=== PATIENT | male | born 1960 | race Caucasian/White ===

== ENCOUNTER 2018-04-25 00:10 | Emergency (ER) | payer MEDICARE, MEDICAID ==
[~2018-04-25] VITALS: Ht 604 cm; Wt 81.8 kg
[~2018-04-25 00:10] MED LIST: BUPR150T27 PO; COU3T PO; OMEP40CA37 PO; PARO10TA4 PO; TAMS0.4C32 PO
[2018-04-25 01:51] LABS: ALANINE AMINOTRANSFERASE 27 U/L (12-78); ALBUMIN 4.1 G/DL (3.4-5.0); ALBUMIN/GLOBULIN RATIO 1.1 (1.1-1.5); ALKALINE PHOSPHATASE 73 IU/L (46-116); ANION GAP 15 (8-16); ASPARTATE AMINO TRANSFERASE 19 U/L (10-37); BILIRUBIN,TOTAL 0.8 MG/DL (0.1-1.0); BLOOD UREA NITROGEN 12 MG/DL (7-18); CALCIUM 8.8 MG/DL (8.5-10.1); CHLORIDE 106 MMOL/L (99-107); POTASSIUM 3.3 MMOL/L (3.5-5.1); SODIUM 142 MMOL/L (135-145); TOTAL CARBON DIOXIDE 21.1 MMOL/L (24-32); TOTAL PROTEIN 7.9 G/DL (6.4-8.2); eGFR 48 ML/MIN
[2018-04-25 01:56] LABS: BASOPHILS # (AUTO) 0.1 X10'3 (0-0.2); BASOPHILS % (AUTO) 0.7 % (0-1); EOSINOPHILS % (AUTO) 0.1 % (0-6); HEMATOCRIT 46.8 % (42.0-52.0); HEMOGLOBIN 16.1 g/dl (14.0-17.9); LYMPHOCYTES # (AUTO) 1.1 X10'3 (1.1-4.8); LYMPHOCYTES % (AUTO) 11.4 % (21-51); MEAN CORPUSCULAR HEMOGLOBIN 30.4 PG (27.0-31.0); MEAN CORPUSCULAR HGB CONC 34.4 % (33.0-36.5); MEAN CORPUSCULAR VOLUME 88.5 FL (78-98); MEAN PLATELET VOLUME 10.2 FL (7.4-10.4); MONOCYTES # (AUTO) 0.8 X10'3 (0-0.9); MONOCYTES % (AUTO) 8.7 % (2-12); NEUTROPHILS # (AUTO) 7.5 X10'3 (1.8-7.7); NEUTROPHILS % (AUTO) 79.1 % (42-75); PLATELET COUNT 208 X10'3 (140-440); RED BLOOD COUNT 5.29 X10'6 (4.70-6.10); RED CELL DISTRIBUTION WIDTH 14.5 % (11.5-14.5); WHITE BLOOD COUNT 9.5 X10'3 (4.5-11.0)
[2018-04-25 02:00] LABS: ETHANOL < 0.010 GM/DL (0.0-0.010)
[2018-04-25 02:07] LABS: ACETAMINOPHEN < 2.0 UG/ML (10-30)
[2018-04-25 02:09] LABS: GLUCOSE 144 MG/DL (70-104)
[2018-04-25 02:46] LABS: URINE AMPHETAMINE SCREEN NEGATIVE (Neg); URINE BARBITUATE SCREEN NEGATIVE (Neg); URINE BENZODIAZEPINES SCREEN NEGATIVE (Neg); URINE CANNABINOID SCREEN NEGATIVE (Neg); URINE COCAINE SCREEN NEGATIVE (Neg); URINE METHADONE SCREEN NEGATIVE (Neg); URINE OPIATE SCREEN NEGATIVE (Neg); URINE PHENCYCLIDINE SCREEN NEGATIVE (Neg)
[2018-04-25] MEDS ORDERED: ziprasidone IM 20mg inj **IM only IM PRN (03:20)
[2018-04-25] MEDS: OLANZapine 2.5MG tablet PO SCH ×2 (07:20→19:58)
[2018-04-25 20:46] VITALS: BP 115/86
== END 2018-04-25 20:00 | disposition home or self-care (01) ==
LOC: ER 00:10
DX: F23 Brief psychotic disorder (principal); Z98.890 Other specified postprocedural states; Z88.8 Allergy status to other drugs, medicaments and biological substances; Z79.01 Long term (current) use of anticoagulants; Z79.899 Other long term (current) drug therapy
CPT/HCPCS: 36415; 70450; 80053; 80305; 80320; 80329; 84443; 85025; 96372; 99285; J3486

== ENCOUNTER 2018-06-14 10:37 | Emergency (ER) | payer MEDICARE, MEDICAID ==
[~2018-06-14] VITALS: Ht 180.3 cm; Wt 77.5 kg
[2018-06-14 12:02] LABS: BASOPHILS # (AUTO) 0.1 X10'3 (0-0.2); BASOPHILS % (AUTO) 0.8 % (0-1); EOSINOPHILS # (AUTO) 0.2 X10'3 (0-0.9); EOSINOPHILS % (AUTO) 2.1 % (0-6); HEMATOCRIT 45.5 % (42.0-52.0); HEMOGLOBIN 15.8 g/dl (14.0-17.9); LYMPHOCYTES # (AUTO) 1.1 X10'3 (1.1-4.8); LYMPHOCYTES % (AUTO) 10.8 % (21-51); MEAN CORPUSCULAR HEMOGLOBIN 30.8 PG (27.0-31.0); MEAN CORPUSCULAR HGB CONC 34.6 % (33.0-36.5); MEAN CORPUSCULAR VOLUME 89.1 FL (78-98); MEAN PLATELET VOLUME 8.9 FL (7.4-10.4); MONOCYTES # (AUTO) 0.6 X10'3 (0-0.9); MONOCYTES % (AUTO) 5.7 % (2-12); NEUTROPHILS # (AUTO) 7.9 X10'3 (1.8-7.7); NEUTROPHILS % (AUTO) 80.6 % (42-75); PLATELET COUNT 273 X10'3 (140-440); RED BLOOD COUNT 5.11 X10'6 (4.70-6.10); RED CELL DISTRIBUTION WIDTH 13.9 % (11.5-14.5); WHITE BLOOD COUNT 9.8 X10'3 (4.5-11.0)
[2018-06-14 12:17] LABS: ALANINE AMINOTRANSFERASE 40 U/L (12-78); ALBUMIN 4.1 G/DL (3.4-5.0); ALBUMIN/GLOBULIN RATIO 1.2 (1.1-1.5); ALKALINE PHOSPHATASE 70 IU/L (46-116); ANION GAP 11 (8-16); ASPARTATE AMINO TRANSFERASE 26 U/L (10-37); BILIRUBIN,TOTAL 1.2 MG/DL (0.1-1.0); BLOOD UREA NITROGEN 14 MG/DL (7-18); BUN/CREATININE RATIO 11.5 (5.4-32.0); CALCIUM 8.8 MG/DL (8.5-10.1); CHLORIDE 104 MMOL/L (99-107); CREATININE 1.22 MG/DL (0.60-1.10); GLUCOSE 123 MG/DL (70-104); POTASSIUM 3.2 MMOL/L (3.5-5.1); SODIUM 140 MMOL/L (135-145); TOTAL CARBON DIOXIDE 25.1 MMOL/L (24-32); TOTAL PROTEIN 7.5 G/DL (6.4-8.2); eGFR 61 ML/MIN
[2018-06-14 12:26] LABS: ETHANOL < 0.010 GM/DL (0.0-0.010)
[2018-06-14 12:47] LABS: CLARITY,URINE SLIGHTLY CLOUDY (Clear); COLOR,URINE YELLOW (Yellow); GLUCOSE, URINE NEGATIVE (Neg); KETONES,URINE 15 mg/dl (Neg); LEUKOCYTE ESTERASE ,URINE NEGATIVE (Neg); NITRITES, URINE NEGATIVE (Neg); OCCULT BLOOD,URINE NEGATIVE (Neg); PROTEIN,URINE TRACE mg/dl (Neg); UROBILINOGEN,URINE 0.2 E.U/dL (0.2-1.0)
[2018-06-14 12:48] LABS: UA COLLECTION TYPE URINAL
[2018-06-14 12:51] LABS: RBC,URINE NONE SEEN /HPF (0-2); WBC,URINE 0-4 /HPF (0-4)
[2018-06-14 12:52] LABS: AMORPHOUS URATES 2+; BACTERIA,URINE NONE SEEN /HPF (Neg); MUCUS STRANDS MANY /LPF (Neg); SQUAMOUS EPITHELIAL CELL,UR FEW /LPF (FEW)
[2018-06-14 12:53] LABS: URINE AMPHETAMINE SCREEN NEGATIVE (Neg); URINE BARBITUATE SCREEN NEGATIVE (Neg); URINE BENZODIAZEPINES SCREEN NEGATIVE (Neg); URINE CANNABINOID SCREEN NEGATIVE (Neg); URINE COCAINE SCREEN NEGATIVE (Neg); URINE METHADONE SCREEN NEGATIVE (Neg); URINE OPIATE SCREEN NEGATIVE (Neg); URINE PHENCYCLIDINE SCREEN NEGATIVE (Neg)
[2018-06-14 16:00] VITALS: BP 125/75
[2018-06-14] MEDS ORDERED: BREXPIPRAZOLE PO SCH (20:00)
[2018-06-14] MEDS ORDERED: potassium Cl 20 mEq SR tablet PO STA (20:48)
[2018-06-14] MEDS ORDERED: magnesium oxide 400mg tablet PO ONE (20:50)
[2018-06-14] MEDS ORDERED: PARoxetine 10mg tablet PO ONE (21:17)
[2018-06-14] MEDS ORDERED: cyclobenzaprine 10mg tablet PO PRN (21:20)
[2018-06-14] MEDS ORDERED: buproprion 150mg XL (24-hour) tablet PO ONE (21:20)
[2018-06-14 21:52] LABS: INR 2.2 INR; PARTIAL THROMBOPLASTIN TIME 33 SECONDS (22-32); PROTHROMBIN TIME 21.9 SECONDS (9.0-12.0)
[2018-06-14 21:58] LABS: ALANINE AMINOTRANSFERASE 30 U/L (12-78); ALBUMIN 3.7 G/DL (3.4-5.0); ALBUMIN/GLOBULIN RATIO 1.2 (1.1-1.5); ALKALINE PHOSPHATASE 64 IU/L (46-116); ANION GAP 9 (8-16); ASPARTATE AMINO TRANSFERASE 24 U/L (10-37); BILIRUBIN,TOTAL 0.9 MG/DL (0.1-1.0); BLOOD UREA NITROGEN 15 MG/DL (7-18); BUN/CREATININE RATIO 14.2 (5.4-32.0); CHLORIDE 103 MMOL/L (99-107); CREATININE 1.06 MG/DL (0.60-1.10); GLUCOSE 106 MG/DL (70-104); POTASSIUM 3.1 MMOL/L (3.5-5.1); SODIUM 140 MMOL/L (135-145); TOTAL CARBON DIOXIDE 28.3 MMOL/L (24-32); TOTAL PROTEIN 6.9 G/DL (6.4-8.2); eGFR 72 ML/MIN
[2018-06-14] MEDS ORDERED: buPROPion 75mg tablet PO ONE (22:00)
[2018-06-14] MEDS ORDERED: warfarin 3mg tablet PO ONE (22:35)
[2018-06-14] MEDS ORDERED: OLAN10TA3 PO ×2 (23:25)
[2018-06-15] MEDS ORDERED: pantoprazole 40mg Tablet.DR PO SCH (07:30)
[2018-06-15] MEDS ORDERED: buPROPion 75mg tablet PO SCH (08:00)
[2018-06-15] MEDS ORDERED: buproprion 150mg XL (24-hour) tablet PO SCH (08:00)
[2018-06-15] MEDS ORDERED: PARoxetine 10mg tablet PO SCH (08:00)
[2018-06-15] MEDS ORDERED: potassium Cl 40MEQ/NS 500ml 500 ML IV PRN ×2 (16:50)
[2018-06-15] MEDS ORDERED: magnesium 4gm in 100ml NS 100 ML IV PRN (16:50)
[2018-06-15] MEDS ORDERED: magnesium Cl slow-release 64mg tablet PO PRN (16:50)
[2018-06-15] MEDS ORDERED: potassium Cl 20 mEq SR tablet PO PRN ×2 (16:50)
[2018-06-15] MEDS ORDERED: warfarin 3mg tablet PO SCH (21:00)
[2018-06-15] MEDS ORDERED: tamsulosin 0.4mg capsule PO SCH (21:00)
[2018-06-15] MEDS ORDERED: warfarin 5mg tablet PO ONE (21:00)
[2018-06-15] MEDS ORDERED: warfarin 1mg tablet PO SCH (21:00)
== END 2018-06-14 22:30 ==
LOC: ER 10:38
DX: F32.9 Major depressive disorder, single episode, unspecified (principal); G89.29 Other chronic pain; M54.9 Dorsalgia, unspecified; Z86.73 Personal history of transient ischemic attack (TIA), and cerebral infarction without residual deficits; Z88.6 Allergy status to analgesic agent; Z88.8 Allergy status to other drugs, medicaments and biological substances
CPT/HCPCS: 36415; 80053; 80305; 80320; 81001; 84443; 85025; 85610; 85730; 99285

== ENCOUNTER 2018-06-14 22:00 | Inpatient (IN) | payer MEDICARE, MEDICAID ==
[~2018-06-14] VITALS: Ht 176.5 cm; Wt 77.0 kg
[2018-06-14] MEDS ORDERED: OLAN10TA3 PO ×2 (23:25)
[2018-06-14 23:30] VITALS: BP 121/85
[2018-06-15] MEDS ORDERED: magnesium hydroxide 30ml (MOM) UD suspension PO PRN
[2018-06-15] MEDS ORDERED: mag hydrox/Alum hydrox/simeth 30ml oral suspension PO PRN
[2018-06-15] MEDS ORDERED: olanzapine 10mg tablet PO ONE (04:50)
[2018-06-15] MEDS ORDERED: olanzapine 10mg tablet PO PRN (06:10)
[2018-06-15] MEDS: pantoprazole 40mg Tablet.DR PO SCH (07:34)
[2018-06-15 08:00] VITALS: BP 110/78
[2018-06-15] MEDS ORDERED: PARoxetine 10mg tablet PO SCH ×2 (08:00)
[2018-06-15] MEDS ORDERED: buproprion 150mg XL (24-hour) tablet PO SCH (08:00)
[2018-06-15] MEDS ORDERED: tamsulosin 0.4mg capsule PO SCH (08:00)
[2018-06-15] MEDS ORDERED: buPROPion 75mg tablet PO SCH (08:00)
[2018-06-15 08:23] LABS: CHOL/HDL RATIO 3.8 (0.00-4.99); CHOLESTEROL 180 MG/DL (0-200); HDL CHOLESTEROL 48 MG/DL (35-60); LDL CHOLESTEROL 114 MG/DL (50-100); TRIGLYCERIDES 112 MG/DL (20-135)
[2018-06-15 08:30] LABS: HEMOGLOBIN A1C 5.4 % (4.5-6.2)
[2018-06-15 12:44] LABS: INR 1.6 INR; PROTHROMBIN TIME 16.6 SECONDS (9.0-12.0)
[2018-06-15] MEDS ORDERED: magnesium Cl slow-release 64mg tablet PO PRN (17:10)
[2018-06-15] MEDS ORDERED: potassium Cl 20 mEq SR tablet PO PRN (17:10)
[2018-06-15] MEDS ORDERED: potassium Cl 40MEQ/NS 500ml 500 ML IV PRN ×2 (17:10)
[2018-06-15] MEDS ORDERED: magnesium 4gm in 100ml NS 100 ML IV PRN (17:10)
[2018-06-15] MEDS: lurasidone 20mg tablet PO SCH (18:48)
[2018-06-15 19:37] VITALS: BP 100/63
[2018-06-15] MEDS ORDERED: warfarin 2.5mg tablet PO SCH (21:00)
[2018-06-15] MEDS ORDERED: warfarin 3mg tablet PO ONE (21:00)
[2018-06-15] MEDS ORDERED: olanzapine 10mg tablet PO SCH (21:00)
[2018-06-15] MEDS: tamsulosin 0.4mg capsule PO SCH (21:12)
[2018-06-15] MEDS: enoxaparin 50mg/0.5ml (from 3ml vial) syringe SUBCUT SCH (21:12)
[2018-06-16 07:14] LABS: INR 1.3 INR; PROTHROMBIN TIME 13.8 SECONDS (9.0-12.0)
[2018-06-16 07:19] LABS: MAGNESIUM 1.7 MG/DL (1.5-2.4); POTASSIUM 3.2 MMOL/L (3.5-5.1)
[2018-06-16 07:49] VITALS: BP 108/69
[2018-06-16] MEDS: pantoprazole 40mg Tablet.DR PO SCH (08:01)
[2018-06-16] MEDS: enoxaparin 50mg/0.5ml (from 3ml vial) syringe SUBCUT SCH ×2 (09:01→20:13)
[2018-06-16] MEDS: olanzapine 10mg tablet PO PRN (17:02)
[2018-06-16] MEDS: lurasidone 20mg tablet PO SCH (17:32)
[2018-06-16 20:00] VITALS: BP 108/85
[2018-06-16] MEDS: traZODone 50mg tablet PO PRN (20:15)
[2018-06-16] MEDS: tamsulosin 0.4mg capsule PO SCH (20:16)
[2018-06-16] MEDS: potassium Cl 20 mEq SR tablet PO PRN (20:25)
[2018-06-16] MEDS ORDERED: warfarin 5mg tablet PO ONE (21:00)
[2018-06-17] MEDS: potassium Cl 20 mEq SR tablet PO PRN (02:16)
[2018-06-17 07:01] LABS: MAGNESIUM 1.9 MG/DL (1.5-2.4)
[2018-06-17 07:04] LABS: INR 1.5 INR; PROTHROMBIN TIME 15.5 SECONDS (9.0-12.0)
[2018-06-17] MEDS: pantoprazole 40mg Tablet.DR PO SCH (08:11)
[2018-06-17] MEDS: enoxaparin 50mg/0.5ml (from 3ml vial) syringe SUBCUT SCH (08:13)
[2018-06-17 08:15] VITALS: BP 108/78
[2018-06-17] MEDS: olanzapine 10mg tablet PO PRN (14:58)
[2018-06-17] MEDS ORDERED: lurasidone 20mg tablet PO SCH (18:00)
[2018-06-17] MEDS ORDERED: lurasidone 60mg tablet PO SCH ×2 (18:00)
[2018-06-17 20:01] VITALS: BP 108/74
[2018-06-17] MEDS: tamsulosin 0.4mg capsule PO SCH (20:25)
[2018-06-17] MEDS: traZODone 50mg tablet PO PRN (20:26)
[2018-06-17] MEDS: enoxaparin 80mg/0.8ml syringe SUBCUT SCH (20:27)
[2018-06-17] MEDS ORDERED: warfarin 5mg tablet PO ONE (21:00)
[2018-06-18 08:00] VITALS: BP 109/69
[2018-06-18] MEDS: pantoprazole 40mg Tablet.DR PO SCH (08:15)
[2018-06-18 08:27] LABS: POTASSIUM 4.1 MMOL/L (3.5-5.1)
[2018-06-18] MEDS: enoxaparin 80mg/0.8ml syringe SUBCUT SCH ×2 (08:48→21:15)
[2018-06-18 10:09] LABS: INR 1.7 INR; PROTHROMBIN TIME 16.8 SECONDS (9.0-12.0)
[2018-06-18] MEDS: acetaminophen 325mg tablet PO PRN (15:35)
[2018-06-18] MEDS: olanzapine 10mg tablet PO PRN (15:36)
[2018-06-18] MEDS: lurasidone 60mg tablet PO SCH (17:51)
[2018-06-18 19:50] VITALS: BP 132/89
[2018-06-18] MEDS ORDERED: warfarin 3mg tablet PO ONE (21:00)
[2018-06-18] MEDS: tamsulosin 0.4mg capsule PO SCH (21:14)
[2018-06-18] MEDS: zolpidem 5mg tablet PO SCH (21:14)
[2018-06-19] MEDS: pantoprazole 40mg Tablet.DR PO SCH (07:26)
[2018-06-19] MEDS: enoxaparin 80mg/0.8ml syringe SUBCUT SCH ×2 (07:27→20:17)
[2018-06-19 08:00] VITALS: BP 110/68
[2018-06-19 08:09] LABS: POTASSIUM 4.4 MMOL/L (3.5-5.1)
[2018-06-19 08:10] LABS: INR 1.7 INR; PROTHROMBIN TIME 17.3 SECONDS (9.0-12.0)
[2018-06-19] MEDS: olanzapine 10mg tablet PO PRN (11:55)
[2018-06-19] MEDS: acetaminophen 325mg tablet PO PRN ×2 (12:03→20:33)
[2018-06-19] MEDS: lurasidone 60mg tablet PO SCH (17:46)
[2018-06-19 20:00] VITALS: BP 125/75
[2018-06-19] MEDS: zolpidem 5mg tablet PO SCH (20:17)
[2018-06-19] MEDS: tamsulosin 0.4mg capsule PO SCH (20:18)
[2018-06-19] MEDS ORDERED: warfarin 7.5mg tablet PO ONE (21:00)
[2018-06-20 07:39] VITALS: BP 99/72
[2018-06-20] MEDS: pantoprazole 40mg Tablet.DR PO SCH (08:17)
[2018-06-20 09:04] LABS: INR 1.9 INR; PROTHROMBIN TIME 19.5 SECONDS (9.0-12.0)
[2018-06-20] MEDS: enoxaparin 80mg/0.8ml syringe SUBCUT SCH ×2 (09:06→20:51)
[2018-06-20] MEDS: olanzapine 10mg tablet PO PRN (09:59)
[2018-06-20] MEDS: lurasidone 60mg tablet PO SCH (17:48)
[2018-06-20] MEDS: acetaminophen 325mg tablet PO PRN (17:49)
[2018-06-20 19:46] VITALS: BP 113/85
[2018-06-20] MEDS: tamsulosin 0.4mg capsule PO SCH (20:50)
[2018-06-20] MEDS: zolpidem 5mg tablet PO SCH (20:50)
[2018-06-20] MEDS ORDERED: warfarin 7.5mg tablet PO ONE (21:00)
[2018-06-21 06:33] LABS: INR 2.2 INR; PROTHROMBIN TIME 22.4 SECONDS (9.0-12.0)
[2018-06-21] MEDS: enoxaparin 80mg/0.8ml syringe SUBCUT SCH (07:45)
[2018-06-21] MEDS: pantoprazole 40mg Tablet.DR PO SCH (07:45)
[2018-06-21 08:00] VITALS: BP 107/71
[2018-06-21] MEDS ORDERED: tuberculin, purif. prot. deriv. 5 units/0.1ml ID ONE (08:30)
[2018-06-21] MEDS: acetaminophen 325mg tablet PO PRN ×2 (11:18→21:02)
[2018-06-21] MEDS: HYDROcodone/acetaminophen 5mg/325mg tablet PO PRN ×2 (13:45→17:38)
[2018-06-21] MEDS: olanzapine 10mg tablet PO PRN ×2 (15:08→21:00)
[2018-06-21] MEDS: lurasidone 60mg tablet PO SCH (17:38)
[2018-06-21 19:38] VITALS: BP 124/83
[2018-06-21] MEDS: zolpidem 5mg tablet PO SCH (20:59)
[2018-06-21] MEDS: tamsulosin 0.4mg capsule PO SCH (20:59)
[2018-06-21] MEDS ORDERED: warfarin 3mg tablet PO ONE (21:00)
[2018-06-22] MEDS: HYDROcodone/acetaminophen 5mg/325mg tablet PO PRN ×2 (02:25→07:35)
[2018-06-22 07:28] LABS: INR 2.5 INR; PROTHROMBIN TIME 24.8 SECONDS (9.0-12.0)
[2018-06-22] MEDS: pantoprazole 40mg Tablet.DR PO SCH (07:35)
[2018-06-22 08:00] VITALS: BP 119/89
[2018-06-22] MEDS ORDERED: LORazepam 1 MG tablet PO ONE (12:00)
[2018-06-22] MEDS: HYDROcodone/acetaminophen 10/325mg tab PO PRN ×2 (12:28→21:19)
[2018-06-22 16:15] VITALS: BP 107/71
[2018-06-22] MEDS: lurasidone 60mg tablet PO SCH (17:05)
[2018-06-22 19:14] LABS: BASOPHILS # (AUTO) 0.1 X10'3 (0-0.2); BASOPHILS % (AUTO) 0.6 % (0-1); EOSINOPHILS # (AUTO) 0.3 X10'3 (0-0.9); EOSINOPHILS % (AUTO) 2.6 % (0-6); HEMATOCRIT 38.9 % (42.0-52.0); HEMOGLOBIN 13.3 g/dl (14.0-17.9); LYMPHOCYTES # (AUTO) 1.3 X10'3 (1.1-4.8); MEAN CORPUSCULAR HEMOGLOBIN 30.7 PG (27.0-31.0); MEAN CORPUSCULAR HGB CONC 34.1 % (33.0-36.5); MEAN CORPUSCULAR VOLUME 90.1 FL (78-98); MEAN PLATELET VOLUME 10.6 FL (7.4-10.4); MONOCYTES % (AUTO) 10.5 % (2-12); NEUTROPHILS # (AUTO) 7.2 X10'3 (1.8-7.7); NEUTROPHILS % (AUTO) 73.3 % (42-75); RED BLOOD COUNT 4.31 X10'6 (4.70-6.10); WHITE BLOOD COUNT 9.8 X10'3 (4.5-11.0)
[2018-06-22 19:52] LABS: PLATELET COUNT 252 X10'3 (140-440)
[2018-06-22 20:00] VITALS: BP 122/76
[2018-06-22] MEDS ORDERED: warfarin 3mg tablet PO ONE (21:00)
[2018-06-22] MEDS: clindamycin 150mg capsule PO SCH (21:18)
[2018-06-22] MEDS: tamsulosin 0.4mg capsule PO SCH (21:19)
[2018-06-22] MEDS: levoFLOXACIN 500mg tablet PO SCH (21:19)
[2018-06-22] MEDS: olanzapine 10mg tablet PO PRN (21:19)
[2018-06-22] MEDS: zolpidem 5mg tablet PO SCH (21:20)
[2018-06-23] MEDS: clindamycin 150mg capsule PO SCH ×5 (02:00→21:30)
[2018-06-23 07:31] LABS: INR 2.6 INR; PROTHROMBIN TIME 25.7 SECONDS (9.0-12.0)
[2018-06-23 08:19] VITALS: BP 104/68
[2018-06-23] MEDS: pantoprazole 40mg Tablet.DR PO SCH (08:28)
[2018-06-23] MEDS: lurasidone 20mg tablet PO SCH (08:29)
[2018-06-23] MEDS: levoFLOXACIN 500mg tablet PO SCH (08:29)
[2018-06-23] MEDS: HYDROcodone/acetaminophen 10/325mg tab PO PRN ×3 (12:38→22:16)
[2018-06-23] MEDS: lurasidone 60mg tablet PO SCH (17:46)
[2018-06-23 19:32] VITALS: BP 110/70
[2018-06-23] MEDS ORDERED: warfarin 3mg tablet PO ONE (21:00)
[2018-06-23] MEDS: zolpidem 5mg tablet PO SCH (21:30)
[2018-06-23] MEDS: lactobacillus rhamnosus 10,000 MMU CELLS/CAPSULE PO SCH (21:30)
[2018-06-23] MEDS: tamsulosin 0.4mg capsule PO SCH (21:32)
[2018-06-23] MEDS: olanzapine 10mg tablet PO PRN (21:34)
[2018-06-24 07:07] LABS: INR 2.6 INR; PROTHROMBIN TIME 25.7 SECONDS (9.0-12.0)
[2018-06-24] MEDS: lactobacillus rhamnosus 10,000 MMU CELLS/CAPSULE PO SCH ×2 (07:47→21:20)
[2018-06-24] MEDS: lurasidone 20mg tablet PO SCH (07:47)
[2018-06-24] MEDS: clindamycin 150mg capsule PO SCH ×4 (07:48→21:20)
[2018-06-24] MEDS: levoFLOXACIN 500mg tablet PO SCH (07:48)
[2018-06-24] MEDS: pantoprazole 40mg Tablet.DR PO SCH (07:48)
[2018-06-24 08:44] VITALS: BP 106/79
[2018-06-24] MEDS: lurasidone 60mg tablet PO SCH (17:39)
[2018-06-24] MEDS: HYDROcodone/acetaminophen 5mg/325mg tablet PO PRN (17:42)
[2018-06-24 19:16] VITALS: BP 113/71
[2018-06-24] MEDS: olanzapine 10mg tablet PO PRN (19:44)
[2018-06-24] MEDS: HYDROcodone/acetaminophen 10/325mg tab PO PRN ×2 (19:45→23:46)
[2018-06-24 20:18] LABS: BASOPHILS % (AUTO) 0.1 % (0-1); EOSINOPHILS # (AUTO) 0.2 X10'3 (0-0.9); HEMATOCRIT 28.8 % (42.0-52.0); HEMOGLOBIN 9.9 g/dl (14.0-17.9); LYMPHOCYTES # (AUTO) 0.7 X10'3 (1.1-4.8); LYMPHOCYTES % (AUTO) 7.2 % (21-51); MEAN CORPUSCULAR HEMOGLOBIN 30.8 PG (27.0-31.0); MEAN CORPUSCULAR HGB CONC 34.5 % (33.0-36.5); MEAN CORPUSCULAR VOLUME 89.1 FL (78-98); MEAN PLATELET VOLUME 9.9 FL (7.4-10.4); MONOCYTES % (AUTO) 10.6 % (2-12); NEUTROPHILS # (AUTO) 7.7 X10'3 (1.8-7.7); NEUTROPHILS % (AUTO) 80.1 % (42-75); PLATELET COUNT 177 X10'3 (140-440); RED BLOOD COUNT 3.23 X10'6 (4.70-6.10); RED CELL DISTRIBUTION WIDTH 13.8 % (11.5-14.5); WHITE BLOOD COUNT 9.6 X10'3 (4.5-11.0)
[2018-06-24 20:30] VITALS: BP 100/60
[2018-06-24 20:35] LABS: ALANINE AMINOTRANSFERASE 49 U/L (12-78); ALBUMIN 2.9 G/DL (3.4-5.0); ALBUMIN/GLOBULIN RATIO 0.9 (1.1-1.5); ALKALINE PHOSPHATASE 65 IU/L (46-116); ANION GAP 9 (8-16); ASPARTATE AMINO TRANSFERASE 27 U/L (10-37); BILIRUBIN,TOTAL 0.5 MG/DL (0.1-1.0); BLOOD UREA NITROGEN 19 MG/DL (7-18); BUN/CREATININE RATIO 14.5 (5.4-32.0); CALCIUM 8.2 MG/DL (8.5-10.1); CHLORIDE 101 MMOL/L (99-107); CREATININE 1.31 MG/DL (0.60-1.10); GLUCOSE 135 MG/DL (70-104); POTASSIUM 3.9 MMOL/L (3.5-5.1); SODIUM 136 MMOL/L (135-145); TOTAL CARBON DIOXIDE 25.9 MMOL/L (24-32); TOTAL PROTEIN 6.2 G/DL (6.4-8.2); eGFR 56 ML/MIN
[2018-06-24] MEDS ORDERED: warfarin 3mg tablet PO ONE (21:00)
[2018-06-24] MEDS: zolpidem 5mg tablet PO SCH (21:20)
[2018-06-24] MEDS: tamsulosin 0.4mg capsule PO SCH (21:20)
[2018-06-24 21:22] LABS: CLARITY,URINE CLEAR (Clear); COLOR,URINE YELLOW (Yellow); GLUCOSE, URINE NEGATIVE (Neg); KETONES,URINE NEGATIVE (Neg); LEUKOCYTE ESTERASE ,URINE NEGATIVE (Neg); NITRITES, URINE NEGATIVE (Neg); OCCULT BLOOD,URINE NEGATIVE (Neg); PH,URINE 5.5 (4.8-8.0); PROTEIN,URINE NEGATIVE (Neg); UROBILINOGEN,URINE 0.2 E.U/dL (0.2-1.0)
[2018-06-24 21:23] LABS: UA COLLECTION TYPE NON-SPECIFIED
[2018-06-25] MEDS: HYDROcodone/acetaminophen 10/325mg tab PO PRN ×3 (03:46→19:37)
[2018-06-25 07:01] LABS: BASOPHILS # (AUTO) 0.1 X10'3 (0-0.2); BASOPHILS % (AUTO) 0.6 % (0-1); EOSINOPHILS # (AUTO) 0.3 X10'3 (0-0.9); EOSINOPHILS % (AUTO) 4.1 % (0-6); HEMOGLOBIN 9.8 g/dl (14.0-17.9); LYMPHOCYTES % (AUTO) 12.3 % (21-51); MEAN CORPUSCULAR HEMOGLOBIN 31.3 PG (27.0-31.0); MEAN CORPUSCULAR HGB CONC 34.9 % (33.0-36.5); MEAN CORPUSCULAR VOLUME 89.7 FL (78-98); MEAN PLATELET VOLUME 9.2 FL (7.4-10.4); MONOCYTES % (AUTO) 11.3 % (2-12); NEUTROPHILS % (AUTO) 71.7 % (42-75); PLATELET COUNT 168 X10'3 (140-440); RED BLOOD COUNT 3.12 X10'6 (4.70-6.10); RED CELL DISTRIBUTION WIDTH 12.9 % (11.5-14.5); WHITE BLOOD COUNT 8.4 X10'3 (4.5-11.0)
[2018-06-25 08:00] VITALS: BP 117/57
[2018-06-25] MEDS: clindamycin 150mg capsule PO SCH ×4 (08:22→20:16)
[2018-06-25] MEDS: lurasidone 20mg tablet PO SCH (08:22)
[2018-06-25] MEDS: lactobacillus rhamnosus 10,000 MMU CELLS/CAPSULE PO SCH ×2 (08:22→20:16)
[2018-06-25] MEDS: pantoprazole 40mg Tablet.DR PO SCH (08:22)
[2018-06-25] MEDS: levoFLOXACIN 500mg tablet PO SCH (08:22)
[2018-06-25 08:30] LABS: INR 2.7 INR; PROTHROMBIN TIME 27.2 SECONDS (9.0-12.0)
[2018-06-25] MEDS: lurasidone 60mg tablet PO SCH (17:33)
[2018-06-25 19:00] VITALS: BP 138/75
[2018-06-25] MEDS: olanzapine 10mg tablet PO PRN (19:35)
[2018-06-25] MEDS: zolpidem 5mg tablet PO SCH (20:16)
[2018-06-25] MEDS: tamsulosin 0.4mg capsule PO SCH (20:18)
[2018-06-25] MEDS ORDERED: warfarin 3mg tablet PO ONE (21:00)
[2018-06-26] MEDS: acetaminophen 325mg tablet PO PRN (02:06)
[2018-06-26 06:43] LABS: BASOPHILS % (AUTO) 0.7 % (0-1); EOSINOPHILS # (AUTO) 0.5 X10'3 (0-0.9); EOSINOPHILS % (AUTO) 7.6 % (0-6); HEMATOCRIT 25.6 % (42.0-52.0); LYMPHOCYTES # (AUTO) 0.7 X10'3 (1.1-4.8); LYMPHOCYTES % (AUTO) 11.2 % (21-51); MEAN CORPUSCULAR HEMOGLOBIN 31.1 PG (27.0-31.0); MEAN CORPUSCULAR HGB CONC 35.3 % (33.0-36.5); MEAN CORPUSCULAR VOLUME 88.3 FL (78-98); MEAN PLATELET VOLUME 9.3 FL (7.4-10.4); MONOCYTES # (AUTO) 0.7 X10'3 (0-0.9); NEUTROPHILS # (AUTO) 4.5 X10'3 (1.8-7.7); NEUTROPHILS % (AUTO) 69.5 % (42-75); PLATELET COUNT 184 X10'3 (140-440); WHITE BLOOD COUNT 6.5 X10'3 (4.5-11.0)
[2018-06-26 07:02] LABS: INR 3.8 INR; PROTHROMBIN TIME 37.6 SECONDS (9.0-12.0)
[2018-06-26 08:00] VITALS: BP 105/64
[2018-06-26] MEDS: lactobacillus rhamnosus 10,000 MMU CELLS/CAPSULE PO SCH (08:15)
[2018-06-26] MEDS: pantoprazole 40mg Tablet.DR PO SCH (08:15)
[2018-06-26] MEDS: clindamycin 150mg capsule PO SCH (08:15)
[2018-06-26] MEDS: levoFLOXACIN 500mg tablet PO SCH (08:15)
[2018-06-26] MEDS: lurasidone 20mg tablet PO SCH (08:15)
[2018-06-26] MEDS ORDERED: phytonadione 10 MG/1 ML amp PO ONE (10:10)
[2018-06-26 17:56] LABS: INR 1.9 INR; PROTHROMBIN TIME 19.5 SECONDS (9.0-12.0)
[2018-06-26] MEDS ORDERED: LACTC PO (19:57)
[2018-06-26] MEDS ORDERED: HYDR-569 PO (19:57)
[2018-06-26] MEDS ORDERED: ZOLP5TAB8 PO (19:57)
[2018-06-26] MEDS ORDERED: MAGN400O6 PO (19:57)
[2018-06-26] MEDS ORDERED: LURA120T PO (19:57)
[2018-06-26] MEDS ORDERED: PANT-47 PO (19:57)
[2018-06-26] MEDS ORDERED: OLAN10TA3 PO (19:57)
[2018-06-26] MEDS ORDERED: WARF6TAB PO (19:57)
[2018-06-26] MEDS ORDERED: CLIN300C3 PO (19:57)
[2018-06-26] MEDS ORDERED: HYDR-565 PO (19:57)
[2018-06-26] MEDS ORDERED: FLO0.4C PO (19:57)
[2018-06-26] MEDS ORDERED: ACET-2119 PO (19:57)
[2018-06-26] MEDS ORDERED: LEVO500T2 PO (19:57)
[2018-06-26] MEDS ORDERED: LURA40TA3 PO (19:57)
[2018-06-26] MEDS ORDERED: MAG355OR18 PO (19:57)
[2018-06-26] MEDS ORDERED: ACET-2144 PO (19:57)
== END 2018-06-26 17:15 | disposition short-term general hospital (02) | DRG 885 ==
LOC: ADULT MH 22:00
PROVIDERS: ADMIT Psychiatry & Neurology Psychiatry; ATTEND Psychiatry & Neurology Psychiatry
DX: F29 Unspecified psychosis not due to a substance or known physiological condition (principal); I69.354 Hemiplegia and hemiparesis following cerebral infarction affecting left non-dominant side; R45.851 Suicidal ideations; D62 Acute posthemorrhagic anemia; L03.116 Cellulitis of left lower limb; F20.9 Schizophrenia, unspecified; M66.0 Rupture of popliteal cyst; E87.6 Hypokalemia; F32.9 Major depressive disorder, single episode, unspecified; F41.9 Anxiety disorder, unspecified; G47.00 Insomnia, unspecified; Z60.2 Problems related to living alone; G89.29 Other chronic pain; M54.9 Dorsalgia, unspecified; M21.339 Wrist drop, unspecified wrist; Z79.01 Long term (current) use of anticoagulants; Z91.14 Patient's other noncompliance with medication regimen; Z95.2 Presence of prosthetic heart valve; Z79.899 Other long term (current) drug therapy; Z88.6 Allergy status to analgesic agent; Z91.048 Other nonmedicinal substance allergy status; Z91.19 Patient's noncompliance with other medical treatment and regimen
CPT/HCPCS: 36415; 80053; 80061; 81003; 83036; 83605; 83735; 84132; 85025; 85610; 87040; 87070; 93971; 97116; 97161; 99285; J1650; J3430; J3490

== ENCOUNTER 2018-06-26 15:20 | Inpatient (IN) | payer MEDICARE, MEDICAID ==
[~2018-06-26] VITALS: Ht 180.3 cm; Wt 81.8 kg
[~2018-06-26 15:20] MED LIST changes: +OLAN10TA3 PO
[2018-06-26 18:00] VITALS: BP 112/63
[2018-06-26] MEDS ORDERED: ACET-2119 PO (19:57)
[2018-06-26] MEDS ORDERED: WARF6TAB PO (19:57)
[2018-06-26] MEDS ORDERED: OLAN10TA3 PO (19:57)
[2018-06-26] MEDS ORDERED: MAGN400O6 PO (19:57)
[2018-06-26] MEDS ORDERED: LACTC PO (19:57)
[2018-06-26] MEDS ORDERED: FLO0.4C PO (19:57)
[2018-06-26] MEDS ORDERED: LEVO500T2 PO (19:57)
[2018-06-26] MEDS ORDERED: CLIN300C3 PO (19:57)
[2018-06-26] MEDS ORDERED: ACET-2144 PO (19:57)
[2018-06-26] MEDS ORDERED: LURA40TA3 PO (19:57)
[2018-06-26] MEDS ORDERED: HYDR-565 PO (19:57)
[2018-06-26] MEDS ORDERED: PANT-47 PO (19:57)
[2018-06-26] MEDS ORDERED: HYDR-569 PO (19:57)
[2018-06-26] MEDS ORDERED: ZOLP5TAB8 PO (19:57)
[2018-06-26] MEDS ORDERED: LURA120T PO (19:57)
[2018-06-26] MEDS ORDERED: MAG355OR18 PO (19:57)
[2018-06-26] MEDS ORDERED: temazepam 15mg capsule PO PRN (21:00)
[2018-06-26] MEDS ORDERED: HYDROmorphone inj. 0.5 MG/0.5 ML DISP.SYRIN IV PRN ×2 (22:00)
[2018-06-26] MEDS ORDERED: morphine 2 MG/ML inj. syringe IV PRN ×2 (22:00)
[2018-06-26] MEDS ORDERED: diphenhydrAMINE 25mg capsule PO PRN (22:00)
[2018-06-26] MEDS ORDERED: bisacodyl 10mg suppository rectal RC PRN (22:00)
[2018-06-26] MEDS ORDERED: olanzapine 10mg tablet PO PRN (22:00)
[2018-06-26] MEDS ORDERED: mag hydrox/Alum hydrox/simeth 30ml oral suspension PO PRN (22:00)
[2018-06-26] MEDS ORDERED: diphenhydrAMINE 50 mg/ml inj IV PRN (22:00)
[2018-06-26] MEDS ORDERED: magnesium hydroxide 30ml (MOM) UD suspension PO PRN (22:00)
[2018-06-26] MEDS ORDERED: metoclopramide 5 mg/ml inj IV PRN (22:00)
[2018-06-26] MEDS ORDERED: acetaminophen 650mg rectal suppository RC PRN (22:00)
[2018-06-26] MEDS ORDERED: ondansetron/PF 4mg/2ml inj IV PRN (22:00)
[2018-06-26] MEDS: normal saline 1000ml 1,000 ML IV SCH (22:31)
[2018-06-26] MEDS: acetaminophen 325mg tablet PO PRN (22:41)
[2018-06-26 22:46] LABS: CREATINE KINASE 114 U/L (39-308); LIPASE 117 U/L (73-393); MAGNESIUM 2.1 MG/DL (1.5-2.4); PHOSPHORUS 2.4 MG/DL (2.3-4.5)
[2018-06-27] VITALS: BP 108/55
[2018-06-27 07:08] LABS: BASOPHILS % (AUTO) 0.6 % (0-1); EOSINOPHILS # (AUTO) 0.5 X10'3 (0-0.9); EOSINOPHILS % (AUTO) 8.3 % (0-6); HEMATOCRIT 24.9 % (42.0-52.0); HEMOGLOBIN 8.7 g/dl (14.0-17.9); LYMPHOCYTES # (AUTO) 0.6 X10'3 (1.1-4.8); LYMPHOCYTES % (AUTO) 10.4 % (21-51); MEAN CORPUSCULAR HEMOGLOBIN 30.8 PG (27.0-31.0); MEAN CORPUSCULAR HGB CONC 35.1 % (33.0-36.5); MEAN CORPUSCULAR VOLUME 87.8 FL (78-98); MEAN PLATELET VOLUME 9.5 FL (7.4-10.4); MONOCYTES # (AUTO) 0.5 X10'3 (0-0.9); MONOCYTES % (AUTO) 8.5 % (2-12); NEUTROPHILS # (AUTO) 4.5 X10'3 (1.8-7.7); NEUTROPHILS % (AUTO) 72.2 % (42-75); PLATELET COUNT 210 X10'3 (140-440); RED BLOOD COUNT 2.84 X10'6 (4.70-6.10); RED CELL DISTRIBUTION WIDTH 13.9 % (11.5-14.5); WHITE BLOOD COUNT 6.2 X10'3 (4.5-11.0)
[2018-06-27 07:26] LABS: ALANINE AMINOTRANSFERASE 30 U/L (12-78); ALBUMIN 2.7 G/DL (3.4-5.0); ALBUMIN/GLOBULIN RATIO 0.8 (1.1-1.5); ALKALINE PHOSPHATASE 59 IU/L (46-116); ANION GAP 8 (8-16); ASPARTATE AMINO TRANSFERASE 18 U/L (10-37); BILIRUBIN,TOTAL 1.1 MG/DL (0.1-1.0); BLOOD UREA NITROGEN 13 MG/DL (7-18); CALCIUM 8.4 MG/DL (8.5-10.1); CHLORIDE 105 MMOL/L (99-107); CREATININE 1.18 MG/DL (0.60-1.10); GLUCOSE 103 MG/DL (70-104); POTASSIUM 3.5 MMOL/L (3.5-5.1); SODIUM 140 MMOL/L (135-145); TOTAL CARBON DIOXIDE 27.3 MMOL/L (24-32); TOTAL PROTEIN 6.1 G/DL (6.4-8.2); eGFR 63 ML/MIN
[2018-06-27] MEDS: PARoxetine 10mg tablet PO SCH (07:29)
[2018-06-27] MEDS: docusate sod 100mg capsule PO SCH ×2 (07:29→22:09)
[2018-06-27] MEDS: tamsulosin 0.4mg capsule PO SCH (07:29)
[2018-06-27] MEDS: pantoprazole 40mg Tablet.DR PO SCH (07:29)
[2018-06-27 07:30] VITALS: BP 131/78
[2018-06-27] MEDS: acetaminophen 325mg tablet PO PRN (07:30)
[2018-06-27] MEDS: ferrous sulfate 325mg tablet PO SCH ×3 (07:34→17:16)
[2018-06-27 07:44] LABS: INR 1.1 INR; PARTIAL THROMBOPLASTIN TIME 33 SECONDS (22-32); PROTHROMBIN TIME 11.6 SECONDS (9.0-12.0)
[2018-06-27] MEDS ORDERED: buproprion 150mg XL (24-hour) tablet PO SCH (08:00)
[2018-06-27] MEDS ORDERED: tamsulosin 0.4mg capsule PO SCH (08:00)
[2018-06-27] MEDS: enoxaparin 80mg/0.8ml syringe SUBCUT SCH ×3 (08:00→22:09)
[2018-06-27 11:40] VITALS: BP 104/53
[2018-06-27] MEDS: HYDROcodone/acetaminophen 10/325mg tab PO PRN (11:57)
[2018-06-27] MEDS: lurasidone 20mg tablet PO SCH (12:31)
[2018-06-27] MEDS: buPROPion 75mg tablet PO SCH ×2 (12:31→22:08)
[2018-06-27 18:00] VITALS: BP 112/73
[2018-06-27] MEDS ORDERED: lurasidone 20mg tablet PO SCH (18:00)
[2018-06-27] MEDS ORDERED: warfarin 7.5mg tablet PO ONE (21:00)
[2018-06-27] MEDS: olanzapine 10mg tablet PO SCH (22:08)
[2018-06-27] MEDS: zolpidem 5mg tablet PO SCH (22:08)
[2018-06-27 23:00] VITALS: BP 116/64
[2018-06-27 23:30] VITALS: BP 109/72
[2018-06-28] MEDS: HYDROcodone/acetaminophen 10/325mg tab PO PRN ×3 (01:19→20:08)
[2018-06-28 05:29] LABS: INR 1.1 INR; PARTIAL THROMBOPLASTIN TIME 39 SECONDS (22-32); PROTHROMBIN TIME 11.2 SECONDS (9.0-12.0)
[2018-06-28 05:38] LABS: BASOPHILS % (AUTO) 0.3 % (0-1); EOSINOPHILS # (AUTO) 0.3 X10'3 (0-0.9); EOSINOPHILS % (AUTO) 3.4 % (0-6); HEMATOCRIT 24.1 % (42.0-52.0); HEMOGLOBIN 8.3 g/dl (14.0-17.9); LYMPHOCYTES # (AUTO) 0.7 X10'3 (1.1-4.8); LYMPHOCYTES % (AUTO) 8.5 % (21-51); MEAN CORPUSCULAR HEMOGLOBIN 30.5 PG (27.0-31.0); MEAN CORPUSCULAR HGB CONC 34.5 % (33.0-36.5); MEAN CORPUSCULAR VOLUME 88.6 FL (78-98); MEAN PLATELET VOLUME 9.3 FL (7.4-10.4); MONOCYTES # (AUTO) 0.7 X10'3 (0-0.9); MONOCYTES % (AUTO) 8.2 % (2-12); NEUTROPHILS # (AUTO) 6.4 X10'3 (1.8-7.7); NEUTROPHILS % (AUTO) 79.6 % (42-75); PLATELET COUNT 224 X10'3 (140-440); RED BLOOD COUNT 2.73 X10'6 (4.70-6.10); RED CELL DISTRIBUTION WIDTH 13.8 % (11.5-14.5); WHITE BLOOD COUNT 8.1 X10'3 (4.5-11.0)
[2018-06-28 05:53] LABS: ALANINE AMINOTRANSFERASE 27 U/L (12-78); ALBUMIN 2.4 G/DL (3.4-5.0); ALBUMIN/GLOBULIN RATIO 0.7 (1.1-1.5); ALKALINE PHOSPHATASE 54 IU/L (46-116); ANION GAP 9 (8-16); ASPARTATE AMINO TRANSFERASE 18 U/L (10-37); BLOOD UREA NITROGEN 15 MG/DL (7-18); BUN/CREATININE RATIO 13.2 (5.4-32.0); CHLORIDE 104 MMOL/L (99-107); CREATININE 1.14 MG/DL (0.60-1.10); GLUCOSE 121 MG/DL (70-104); POTASSIUM 3.4 MMOL/L (3.5-5.1); SODIUM 139 MMOL/L (135-145); TOTAL CARBON DIOXIDE 26.3 MMOL/L (24-32); TOTAL PROTEIN 5.7 G/DL (6.4-8.2); eGFR 66 ML/MIN
[2018-06-28 07:00] VITALS: BP 105/65
[2018-06-28] MEDS: enoxaparin 80mg/0.8ml syringe SUBCUT SCH ×2 (08:51→20:10)
[2018-06-28] MEDS: docusate sod 100mg capsule PO SCH ×2 (08:51→20:09)
[2018-06-28] MEDS: tamsulosin 0.4mg capsule PO SCH (08:52)
[2018-06-28] MEDS: HYDROcodone/acetaminophen 5mg/325mg tablet PO PRN (08:52)
[2018-06-28] MEDS: PARoxetine 10mg tablet PO SCH (08:52)
[2018-06-28] MEDS: lurasidone 20mg tablet PO SCH (08:52)
[2018-06-28] MEDS: ferrous sulfate 325mg tablet PO SCH ×3 (08:52→17:46)
[2018-06-28] MEDS: buPROPion 75mg tablet PO SCH ×2 (08:52→20:09)
[2018-06-28] MEDS: pantoprazole 40mg Tablet.DR PO SCH (08:54)
[2018-06-28 11:00] VITALS: BP 104/68
[2018-06-28] MEDS ORDERED: magnesium 1gm/100ml D5W IVPB 100 ML IV PRN (11:30)
[2018-06-28] MEDS ORDERED: potassium Cl 20 mEq SR tablet PO PRN (11:30)
[2018-06-28] MEDS ORDERED: potassium Cl 40MEQ/NS 500ml 500 ML IV PRN ×2 (11:30)
[2018-06-28] MEDS ORDERED: magnesium Cl slow-release 64mg tablet PO PRN (11:30)
[2018-06-28] MEDS ORDERED: magnesium 4gm in 100ml NS 100 ML IV PRN (11:30)
[2018-06-28] MEDS: vancomycin inj 1,250 MG in normal saline 250ml IV soln 250 ML IV SCH (13:31)
[2018-06-28] MEDS: potassium Cl 20 mEq SR tablet PO PRN ×3 (13:39→21:36)
[2018-06-28 13:48] LABS: % IRON SATURATION 8 % (11-46); FERRITIN 364 NG/ML (26-388); IRON 16 UG/DL (53-167); TOTAL IRON BINDING CAPACITY 196 UG/DL (259-388)
[2018-06-28] MEDS: normal saline 1000ml 1,000 ML IV SCH ×2 (14:23→20:09)
[2018-06-28] MEDS: piperacillin/tazo 3.375gm/50ml 50 ML IV SCH ×2 (15:01→20:09)
[2018-06-28] MEDS ORDERED: gadopentetate dimeglumine 7.5 MMOL/15 ML syringe ONE (17:06)
[2018-06-28] MEDS: lurasidone 60mg tablet PO SCH (17:51)
[2018-06-28 20:00] VITALS: BP 112/66
[2018-06-28] MEDS ORDERED: warfarin 3mg tablet PO ONE (21:00)
[2018-06-28] MEDS: zolpidem 5mg tablet PO SCH (21:36)
[2018-06-28] MEDS: olanzapine 10mg tablet PO SCH (21:36)
[2018-06-29] MEDS: vancomycin inj 1,250 MG in normal saline 250ml IV soln 250 ML IV SCH ×2 (01:04→13:00)
[2018-06-29] MEDS: piperacillin/tazo 3.375gm/50ml 50 ML IV SCH ×4 (03:12→20:47)
[2018-06-29] MEDS: HYDROcodone/acetaminophen 10/325mg tab PO PRN (03:44)
[2018-06-29 05:36] LABS: BASOPHILS % (AUTO) 0.2 % (0-1); EOSINOPHILS # (AUTO) 0.6 X10'3 (0-0.9); EOSINOPHILS % (AUTO) 7.8 % (0-6); HEMATOCRIT 22.7 % (42.0-52.0); HEMOGLOBIN 8.1 g/dl (14.0-17.9); LYMPHOCYTES # (AUTO) 0.6 X10'3 (1.1-4.8); LYMPHOCYTES % (AUTO) 7.7 % (21-51); MEAN CORPUSCULAR HEMOGLOBIN 31.3 PG (27.0-31.0); MEAN CORPUSCULAR HGB CONC 35.5 % (33.0-36.5); MEAN CORPUSCULAR VOLUME 88.3 FL (78-98); MEAN PLATELET VOLUME 8.4 FL (7.4-10.4); MONOCYTES # (AUTO) 0.5 X10'3 (0-0.9); MONOCYTES % (AUTO) 7.3 % (2-12); NEUTROPHILS # (AUTO) 5.6 X10'3 (1.8-7.7); PLATELET COUNT 237 X10'3 (140-440); RED BLOOD COUNT 2.57 X10'6 (4.70-6.10); RED CELL DISTRIBUTION WIDTH 13.8 % (11.5-14.5); WHITE BLOOD COUNT 7.3 X10'3 (4.5-11.0)
[2018-06-29 05:51] LABS: INR 1.1 INR; PARTIAL THROMBOPLASTIN TIME 38 SECONDS (22-32); PROTHROMBIN TIME 11.7 SECONDS (9.0-12.0)
[2018-06-29 05:59] LABS: ALANINE AMINOTRANSFERASE 24 U/L (12-78); ALBUMIN 2.2 G/DL (3.4-5.0); ALBUMIN/GLOBULIN RATIO 0.7 (1.1-1.5); ALKALINE PHOSPHATASE 53 IU/L (46-116); ANION GAP 9 (8-16); ASPARTATE AMINO TRANSFERASE 15 U/L (10-37); BILIRUBIN,TOTAL 1.1 MG/DL (0.1-1.0); BLOOD UREA NITROGEN 12 MG/DL (7-18); CALCIUM 7.7 MG/DL (8.5-10.1); CHLORIDE 108 MMOL/L (99-107); CREATININE 1.09 MG/DL (0.60-1.10); GLUCOSE 106 MG/DL (70-104); MAGNESIUM 1.8 MG/DL (1.5-2.4); POTASSIUM 3.8 MMOL/L (3.5-5.1); SODIUM 141 MMOL/L (135-145); TOTAL CARBON DIOXIDE 24.1 MMOL/L (24-32); TOTAL PROTEIN 5.4 G/DL (6.4-8.2); eGFR 69 ML/MIN
[2018-06-29 07:00] VITALS: BP 108/69
[2018-06-29] MEDS: PARoxetine 10mg tablet PO SCH (08:26)
[2018-06-29] MEDS: buPROPion 75mg tablet PO SCH ×2 (08:26→20:46)
[2018-06-29] MEDS: normal saline 1000ml 1,000 ML IV SCH (08:26)
[2018-06-29] MEDS: docusate sod 100mg capsule PO SCH ×2 (08:26→20:46)
[2018-06-29] MEDS: ferrous sulfate 325mg tablet PO SCH ×3 (08:26→18:58)
[2018-06-29] MEDS: pantoprazole 40mg Tablet.DR PO SCH (08:26)
[2018-06-29] MEDS: tamsulosin 0.4mg capsule PO SCH (08:26)
[2018-06-29] MEDS: enoxaparin 80mg/0.8ml syringe SUBCUT SCH ×2 (08:28→20:46)
[2018-06-29] MEDS: lurasidone 20mg tablet PO SCH (09:37)
[2018-06-29 12:00] VITALS: BP 108/68
[2018-06-29 12:38] LABS: OCCULT BLOOD STOOL NEGATIVE (Neg)
[2018-06-29] MEDS: acetaminophen 325mg tablet PO PRN (15:07)
[2018-06-29] MEDS: lurasidone 60mg tablet PO SCH (18:59)
[2018-06-29 20:00] VITALS: BP 123/60
[2018-06-29] MEDS: lactobacillus rhamnosus 10,000 MMU CELLS/CAPSULE PO SCH (20:45)
[2018-06-29] MEDS ORDERED: warfarin 5mg tablet PO ONE (21:00)
[2018-06-29] MEDS: olanzapine 10mg tablet PO SCH (21:02)
[2018-06-29] MEDS: zolpidem 5mg tablet PO SCH (21:04)
[2018-06-30] VITALS: BP 104/65
[2018-06-30] MEDS: normal saline 1000ml 1,000 ML IV SCH ×3 (00:30→16:37)
[2018-06-30] MEDS ORDERED: VANCOMYCIN LEVEL IV ONE (00:30)
[2018-06-30] MEDS: vancomycin inj 1,250 MG in normal saline 250ml IV soln 250 ML IV SCH (01:21)
[2018-06-30] MEDS: piperacillin/tazo 3.375gm/50ml 50 ML IV SCH ×4 (02:19→22:33)
[2018-06-30 07:00] VITALS: BP 112/68
[2018-06-30 07:20] LABS: BASOPHILS % (AUTO) 0.5 % (0-1); EOSINOPHILS # (AUTO) 0.5 X10'3 (0-0.9); EOSINOPHILS % (AUTO) 7.5 % (0-6); HEMATOCRIT 23.7 % (42.0-52.0); HEMOGLOBIN 8.1 g/dl (14.0-17.9); LYMPHOCYTES # (AUTO) 0.8 X10'3 (1.1-4.8); LYMPHOCYTES % (AUTO) 12.1 % (21-51); MEAN CORPUSCULAR HEMOGLOBIN 30.3 PG (27.0-31.0); MEAN CORPUSCULAR HGB CONC 34.2 % (33.0-36.5); MEAN CORPUSCULAR VOLUME 88.6 FL (78-98); MEAN PLATELET VOLUME 8.4 FL (7.4-10.4); MONOCYTES # (AUTO) 0.5 X10'3 (0-0.9); NEUTROPHILS % (AUTO) 72.9 % (42-75); PLATELET COUNT 262 X10'3 (140-440); RED BLOOD COUNT 2.68 X10'6 (4.70-6.10); RED CELL DISTRIBUTION WIDTH 14.4 % (11.5-14.5); WHITE BLOOD COUNT 6.8 X10'3 (4.5-11.0)
[2018-06-30 07:29] LABS: INR 1.5 INR; PROTHROMBIN TIME 15.1 SECONDS (9.0-12.0)
[2018-06-30 07:40] LABS: ALANINE AMINOTRANSFERASE 24 U/L (12-78); ALBUMIN 2.2 G/DL (3.4-5.0); ALBUMIN/GLOBULIN RATIO 0.6 (1.1-1.5); ALKALINE PHOSPHATASE 49 IU/L (46-116); ANION GAP 8 (8-16); ASPARTATE AMINO TRANSFERASE 18 U/L (10-37); BILIRUBIN,TOTAL 0.8 MG/DL (0.1-1.0); BLOOD UREA NITROGEN 10 MG/DL (7-18); BUN/CREATININE RATIO 9.1 (5.4-32.0); CALCIUM 7.8 MG/DL (8.5-10.1); CHLORIDE 109 MMOL/L (99-107); GLUCOSE 106 MG/DL (70-104); MAGNESIUM 1.9 MG/DL (1.5-2.4); POTASSIUM 3.5 MMOL/L (3.5-5.1); SODIUM 142 MMOL/L (135-145); TOTAL PROTEIN 5.6 G/DL (6.4-8.2); eGFR 69 ML/MIN
[2018-06-30] MEDS: buPROPion 75mg tablet PO SCH ×2 (09:20→22:40)
[2018-06-30] MEDS: lactobacillus rhamnosus 10,000 MMU CELLS/CAPSULE PO SCH ×2 (09:20→22:42)
[2018-06-30] MEDS: pantoprazole 40mg Tablet.DR PO SCH (09:20)
[2018-06-30] MEDS: ferrous sulfate 325mg tablet PO SCH ×3 (09:20→17:44)
[2018-06-30] MEDS: docusate sod 100mg capsule PO SCH ×2 (09:21→20:00)
[2018-06-30] MEDS: PARoxetine 10mg tablet PO SCH (09:21)
[2018-06-30] MEDS: tamsulosin 0.4mg capsule PO SCH (09:22)
[2018-06-30] MEDS: lurasidone 20mg tablet PO SCH ×2 (09:22→17:44)
[2018-06-30] MEDS: enoxaparin 80mg/0.8ml syringe SUBCUT SCH ×2 (09:24→22:38)
[2018-06-30 17:02] VITALS: BP 107/65
[2018-06-30] MEDS: lurasidone 60mg tablet PO SCH (17:55)
[2018-06-30 20:00] VITALS: BP 117/65
[2018-06-30] MEDS ORDERED: acetaminophen 325mg tablet PO ONE (20:25)
[2018-06-30] MEDS ORDERED: warfarin 3mg tablet PO ONE (21:00)
[2018-06-30] MEDS: zolpidem 5mg tablet PO SCH (22:39)
[2018-06-30] MEDS: olanzapine 10mg tablet PO SCH (22:40)
[2018-07-01] VITALS: BP 95/56
[2018-07-01] MEDS: piperacillin/tazo 3.375gm/50ml 50 ML IV SCH ×4 (03:43→20:28)
[2018-07-01] MEDS: normal saline 1000ml 1,000 ML IV SCH ×2 (05:57→09:01)
[2018-07-01 06:08] LABS: BASOPHILS % (AUTO) 0.7 % (0-1); EOSINOPHILS # (AUTO) 0.7 X10'3 (0-0.9); EOSINOPHILS % (AUTO) 11.2 % (0-6); HEMATOCRIT 25.2 % (42.0-52.0); HEMOGLOBIN 8.6 g/dl (14.0-17.9); LYMPHOCYTES # (AUTO) 0.7 X10'3 (1.1-4.8); LYMPHOCYTES % (AUTO) 11.3 % (21-51); MEAN CORPUSCULAR HEMOGLOBIN 30.1 PG (27.0-31.0); MEAN CORPUSCULAR VOLUME 88.5 FL (78-98); MEAN PLATELET VOLUME 8.6 FL (7.4-10.4); MONOCYTES # (AUTO) 0.5 X10'3 (0-0.9); MONOCYTES % (AUTO) 8.1 % (2-12); NEUTROPHILS # (AUTO) 4.3 X10'3 (1.8-7.7); NEUTROPHILS % (AUTO) 68.7 % (42-75); PLATELET COUNT 279 X10'3 (140-440); RED BLOOD COUNT 2.85 X10'6 (4.70-6.10); RED CELL DISTRIBUTION WIDTH 14.2 % (11.5-14.5); WHITE BLOOD COUNT 6.3 X10'3 (4.5-11.0)
[2018-07-01 06:11] LABS: INR 1.5 INR; PROTHROMBIN TIME 15.3 SECONDS (9.0-12.0)
[2018-07-01 06:28] LABS: ALANINE AMINOTRANSFERASE 31 U/L (12-78); ALBUMIN 2.4 G/DL (3.4-5.0); ALBUMIN/GLOBULIN RATIO 0.7 (1.1-1.5); ALKALINE PHOSPHATASE 55 IU/L (46-116); ANION GAP 8 (8-16); ASPARTATE AMINO TRANSFERASE 21 U/L (10-37); BILIRUBIN,TOTAL 1.1 MG/DL (0.1-1.0); BLOOD UREA NITROGEN 9 MG/DL (7-18); BUN/CREATININE RATIO 8.1 (5.4-32.0); CHLORIDE 110 MMOL/L (99-107); CREATININE 1.11 MG/DL (0.60-1.10); GLUCOSE 94 MG/DL (70-104); MAGNESIUM 1.8 MG/DL (1.5-2.4); POTASSIUM 3.1 MMOL/L (3.5-5.1); SODIUM 144 MMOL/L (135-145); TOTAL CARBON DIOXIDE 25.9 MMOL/L (24-32); eGFR 68 ML/MIN
[2018-07-01 07:23] VITALS: BP 112/63
[2018-07-01] MEDS: docusate sod 100mg capsule PO SCH ×2 (08:00→20:00)
[2018-07-01] MEDS: tamsulosin 0.4mg capsule PO SCH (08:54)
[2018-07-01] MEDS: pantoprazole 40mg Tablet.DR PO SCH (08:54)
[2018-07-01] MEDS: lactobacillus rhamnosus 10,000 MMU CELLS/CAPSULE PO SCH ×2 (08:54→20:28)
[2018-07-01] MEDS: PARoxetine 10mg tablet PO SCH (08:55)
[2018-07-01] MEDS: ferrous sulfate 325mg tablet PO SCH ×3 (08:55→17:11)
[2018-07-01] MEDS: buPROPion 75mg tablet PO SCH ×2 (08:55→20:28)
[2018-07-01] MEDS: enoxaparin 80mg/0.8ml syringe SUBCUT SCH ×2 (08:58→20:36)
[2018-07-01] MEDS: potassium Cl 20 mEq SR tablet PO PRN ×3 (10:16→20:37)
[2018-07-01 11:09] VITALS: BP 107/66
[2018-07-01] MEDS ORDERED: iohexol 300mg/ml 100ml inj. ONE (11:39)
[2018-07-01] MEDS ORDERED: potassium Cl 20 mEq SR tablet PO PRN (15:50)
[2018-07-01] MEDS ORDERED: magnesium 1gm/100ml D5W IVPB 100 ML IV PRN (15:50)
[2018-07-01] MEDS ORDERED: magnesium 4gm in 100ml NS 100 ML IV PRN (15:50)
[2018-07-01] MEDS ORDERED: potassium Cl 40MEQ/NS 500ml 500 ML IV PRN ×2 (15:50)
[2018-07-01] MEDS ORDERED: magnesium Cl slow-release 64mg tablet PO PRN (15:50)
[2018-07-01] MEDS ORDERED: lurasidone 20mg tablet PO ONE ×2 (17:20→17:35)
[2018-07-01] MEDS: lurasidone 60mg tablet PO SCH (17:26)
[2018-07-01 19:00] VITALS: BP 99/66
[2018-07-01] MEDS: HYDROcodone/acetaminophen 5mg/325mg tablet PO PRN (19:25)
[2018-07-01] MEDS: olanzapine 10mg tablet PO SCH (21:36)
[2018-07-01] MEDS: zolpidem 5mg tablet PO SCH (22:53)
[2018-07-02] VITALS (17 sets, daily range): BP systolic 104–140; BP diastolic 65–92
[2018-07-02] MEDS ORDERED: normal saline 1000ml 1,000 ML IV ONE (00:20)
[2018-07-02] MEDS ORDERED: VANCOMYCIN LEVEL IV ONE (00:30)
[2018-07-02 01:19] LABS: MAGNESIUM 1.7 MG/DL (1.5-2.4); POTASSIUM 3.5 MMOL/L (3.5-5.1)
[2018-07-02] MEDS: normal saline 1000ml 1,000 ML IV SCH ×4 (01:35→21:21)
[2018-07-02] MEDS: piperacillin/tazo 3.375gm/50ml 50 ML IV SCH ×4 (03:35→21:09)
[2018-07-02 06:51] LABS: INR 1.4 INR; PROTHROMBIN TIME 14.7 SECONDS (9.0-12.0)
[2018-07-02] MEDS: docusate sod 100mg capsule PO SCH ×2 (08:00→21:02)
[2018-07-02] MEDS: enoxaparin 80mg/0.8ml syringe SUBCUT SCH ×2 (08:00→21:07)
[2018-07-02] MEDS: pantoprazole 40mg Tablet.DR PO SCH (09:01)
[2018-07-02] MEDS: PARoxetine 10mg tablet PO SCH (09:02)
[2018-07-02] MEDS: lactobacillus rhamnosus 10,000 MMU CELLS/CAPSULE PO SCH ×2 (09:02→21:02)
[2018-07-02] MEDS: tamsulosin 0.4mg capsule PO SCH (09:02)
[2018-07-02] MEDS: lurasidone 20mg tablet PO SCH (09:02)
[2018-07-02] MEDS: buPROPion 75mg tablet PO SCH ×2 (09:03→21:15)
[2018-07-02] MEDS: ferrous sulfate 325mg tablet PO SCH ×3 (09:03→20:58)
[2018-07-02] MEDS: HYDROcodone/acetaminophen 5mg/325mg tablet PO PRN (09:04)
[2018-07-02 15:40] LABS: BASOPHILS % (AUTO) 0.3 % (0-1); EOSINOPHILS # (AUTO) 0.4 X10'3 (0-0.9); EOSINOPHILS % (AUTO) 6.8 % (0-6); HEMATOCRIT 24.8 % (42.0-52.0); HEMOGLOBIN 8.4 g/dl (14.0-17.9); LYMPHOCYTES # (AUTO) 0.6 X10'3 (1.1-4.8); LYMPHOCYTES % (AUTO) 8.9 % (21-51); MEAN CORPUSCULAR HEMOGLOBIN 29.8 PG (27.0-31.0); MEAN CORPUSCULAR HGB CONC 33.8 % (33.0-36.5); MEAN CORPUSCULAR VOLUME 88.1 FL (78-98); MEAN PLATELET VOLUME 8.6 FL (7.4-10.4); MONOCYTES # (AUTO) 0.4 X10'3 (0-0.9); MONOCYTES % (AUTO) 5.6 % (2-12); NEUTROPHILS % (AUTO) 78.4 % (42-75); PLATELET COUNT 312 X10'3 (140-440); RED BLOOD COUNT 2.82 X10'6 (4.70-6.10); RED CELL DISTRIBUTION WIDTH 14.7 % (11.5-14.5); WHITE BLOOD COUNT 6.4 X10'3 (4.5-11.0)
[2018-07-02 15:51] LABS: PARTIAL THROMBOPLASTIN TIME 32 SECONDS (22-32)
[2018-07-02 15:55] LABS: ALANINE AMINOTRANSFERASE 25 U/L (12-78); ALBUMIN 2.4 G/DL (3.4-5.0); ALBUMIN/GLOBULIN RATIO 0.7 (1.1-1.5); ALKALINE PHOSPHATASE 57 IU/L (46-116); ANION GAP 9 (8-16); ASPARTATE AMINO TRANSFERASE 24 U/L (10-37); BLOOD UREA NITROGEN 8 MG/DL (7-18); BUN/CREATININE RATIO 7.6 (5.4-32.0); CALCIUM 7.9 MG/DL (8.5-10.1); CHLORIDE 109 MMOL/L (99-107); CREATININE 1.05 MG/DL (0.60-1.10); GLUCOSE 98 MG/DL (70-104); POTASSIUM 3.5 MMOL/L (3.5-5.1); SODIUM 142 MMOL/L (135-145); eGFR 73 ML/MIN
[2018-07-02] MEDS ORDERED: bacitracin 15gm ointment TP ONE (16:41)
[2018-07-02] MEDS ORDERED: sevoflurane 250ml liquid IH ONE (18:03)
[2018-07-02] MEDS ORDERED: fentaNYL/PF 50MCG/1 ML 2ML syringe ONE ×2 (18:08→18:36)
[2018-07-02] MEDS ORDERED: midazolam 2 mg/2 ml injection ONE (18:09)
[2018-07-02] MEDS ORDERED: propofol inj 20 ML IV ONE (18:36)
[2018-07-02] MEDS: zolpidem 5mg tablet PO SCH (21:00)
[2018-07-02] MEDS: HYDROcodone/acetaminophen 10/325mg tab PO PRN (21:07)
[2018-07-02] MEDS: lurasidone 60mg tablet PO SCH (21:15)
[2018-07-02] MEDS: olanzapine 10mg tablet PO SCH (23:03)
[2018-07-03] VITALS: BP 126/76
[2018-07-03 00:15] VITALS: BP 98/65
[2018-07-03] MEDS: HYDROcodone/acetaminophen 5mg/325mg tablet PO PRN (01:22)
[2018-07-03 04:30] VITALS: BP 105/68
[2018-07-03] MEDS: piperacillin/tazo 3.375gm/50ml 50 ML IV SCH ×4 (04:41→20:28)
[2018-07-03 07:09] LABS: INR 1.4 INR
[2018-07-03] MEDS: enoxaparin 80mg/0.8ml syringe SUBCUT SCH ×2 (07:15→19:24)
[2018-07-03] MEDS: lactobacillus rhamnosus 10,000 MMU CELLS/CAPSULE PO SCH ×2 (07:15→19:24)
[2018-07-03] MEDS: tamsulosin 0.4mg capsule PO SCH (07:15)
[2018-07-03] MEDS: pantoprazole 40mg Tablet.DR PO SCH (07:15)
[2018-07-03] MEDS: PARoxetine 10mg tablet PO SCH (07:15)
[2018-07-03] MEDS: docusate sod 100mg capsule PO SCH ×3 (07:16→19:30)
[2018-07-03] MEDS: buPROPion 75mg tablet PO SCH ×2 (07:16→19:24)
[2018-07-03] MEDS: lurasidone 20mg tablet PO SCH (07:16)
[2018-07-03 07:23] LABS: MAGNESIUM 1.8 MG/DL (1.5-2.4); POTASSIUM 3.3 MMOL/L (3.5-5.1)
[2018-07-03 08:00] VITALS: BP 114/71
[2018-07-03] MEDS ORDERED: VANCOMYCIN LEVEL IV ONE (08:30)
[2018-07-03] MEDS: potassium Cl 20 mEq SR tablet PO PRN ×3 (09:47→17:40)
[2018-07-03] MEDS: ferrous sulfate 325mg tablet PO SCH ×3 (09:47→17:40)
[2018-07-03 10:59] VITALS: BP 102/68
[2018-07-03] MEDS: vancomycin/NS 1 GM ADD-VANTAGE 250 ML IV SCH ×2 (11:32→18:24)
[2018-07-03] MEDS: lurasidone 60mg tablet PO SCH (17:40)
[2018-07-03 18:00] VITALS: BP 115/71
[2018-07-03] MEDS: olanzapine 10mg tablet PO SCH (20:29)
[2018-07-03] MEDS: zolpidem 5mg tablet PO SCH (20:29)
[2018-07-04] VITALS: BP 125/75
[2018-07-04] MEDS: piperacillin/tazo 3.375gm/50ml 50 ML IV SCH ×4 (01:37→20:15)
[2018-07-04] MEDS: vancomycin/NS 1 GM ADD-VANTAGE 250 ML IV SCH ×3 (02:09→18:29)
[2018-07-04 06:18] LABS: INR 1.2 INR; PROTHROMBIN TIME 12.1 SECONDS (9.0-12.0)
[2018-07-04 08:00] VITALS: BP 112/75
[2018-07-04] MEDS: docusate sod 100mg capsule PO SCH ×2 (08:00→20:16)
[2018-07-04] MEDS: tamsulosin 0.4mg capsule PO SCH (08:44)
[2018-07-04] MEDS: lactobacillus rhamnosus 10,000 MMU CELLS/CAPSULE PO SCH ×2 (08:44→20:15)
[2018-07-04] MEDS: ferrous sulfate 325mg tablet PO SCH ×3 (08:45→17:31)
[2018-07-04] MEDS: buPROPion 75mg tablet PO SCH ×2 (08:45→20:16)
[2018-07-04] MEDS: HYDROcodone/acetaminophen 10/325mg tab PO PRN (08:45)
[2018-07-04] MEDS: PARoxetine 10mg tablet PO SCH (08:46)
[2018-07-04] MEDS: enoxaparin 80mg/0.8ml syringe SUBCUT SCH ×2 (08:47→20:00)
[2018-07-04] MEDS: lurasidone 20mg tablet PO SCH (08:51)
[2018-07-04] MEDS: pantoprazole 40mg Tablet.DR PO SCH (08:51)
[2018-07-04] MEDS ORDERED: VANCOMYCIN LEVEL IV NR (10:30)
[2018-07-04] MEDS: normal saline 1000ml 1,000 ML IV SCH (11:15)
[2018-07-04 11:46] VITALS: BP 101/65
[2018-07-04] MEDS: lurasidone 60mg tablet PO SCH (17:35)
[2018-07-04 18:00] VITALS: BP 111/70
[2018-07-04] MEDS: olanzapine 10mg tablet PO SCH (20:16)
[2018-07-04] MEDS: zolpidem 5mg tablet PO SCH (20:16)
[2018-07-04] MEDS ORDERED: warfarin 3mg tablet PO ONE (21:00)
[2018-07-05] VITALS: BP 123/86
[2018-07-05] MEDS: piperacillin/tazo 3.375gm/50ml 50 ML IV SCH ×2 (01:07→08:18)
[2018-07-05] MEDS: vancomycin/NS 1 GM ADD-VANTAGE 250 ML IV SCH ×2 (02:04→11:52)
[2018-07-05 06:36] LABS: INR 1.1 INR
[2018-07-05 06:40] LABS: ALBUMIN 2.3 G/DL (3.4-5.0); ANION GAP 10 (8-16); BLOOD UREA NITROGEN 11 MG/DL (7-18); BUN/CREATININE RATIO 8.5 (5.4-32.0); CALCIUM 7.9 MG/DL (8.5-10.1); CHLORIDE 112 MMOL/L (99-107); CREATININE 1.29 MG/DL (0.60-1.10); GLUCOSE 121 MG/DL (70-104); POTASSIUM 3.2 MMOL/L (3.5-5.1); SODIUM 146 MMOL/L (135-145); TOTAL CARBON DIOXIDE 24.2 MMOL/L (24-32); eGFR 57 ML/MIN
[2018-07-05 07:57] VITALS: BP 123/78
[2018-07-05] MEDS: PARoxetine 10mg tablet PO SCH ×2 (08:00→12:18)
[2018-07-05] MEDS: enoxaparin 80mg/0.8ml syringe SUBCUT SCH (08:00)
[2018-07-05] MEDS: docusate sod 100mg capsule PO SCH (08:00)
[2018-07-05] MEDS: lactobacillus rhamnosus 10,000 MMU CELLS/CAPSULE PO SCH (08:18)
[2018-07-05] MEDS: pantoprazole 40mg Tablet.DR PO SCH (08:18)
[2018-07-05] MEDS: tamsulosin 0.4mg capsule PO SCH (08:18)
[2018-07-05] MEDS: buPROPion 75mg tablet PO SCH (08:19)
[2018-07-05] MEDS: lurasidone 20mg tablet PO SCH (08:19)
[2018-07-05] MEDS: ferrous sulfate 325mg tablet PO SCH ×2 (08:19→11:51)
[2018-07-05] MEDS ORDERED: potassium Cl 20 mEq SR tablet PO PRN ×2 (08:30)
[2018-07-05] MEDS ORDERED: potassium Cl 40MEQ/NS 500ml 500 ML IV PRN ×2 (08:30)
[2018-07-05] MEDS ORDERED: K and/or MAG REPLACEMENT MC SCH (08:30)
[2018-07-05] MEDS ORDERED: VANCOMYCIN LEVEL IV NR (10:30)
[2018-07-05] MEDS ORDERED: COU3T PO (12:24)
[2018-07-05] MEDS ORDERED: LACT1CAP26 PO (12:24)
[2018-07-05] MEDS ORDERED: ENOX80DI10 SUBCUT (12:24)
[2018-07-05] MEDS ORDERED: FER325T PO (12:24)
[2018-07-05] MEDS ORDERED: CEFD300C3 PO (12:24)
[2018-07-05] MEDS ORDERED: VANCOMYCIN 750MG IV in NS 250 ML IV SCH (21:00)
[2018-07-05] MEDS ORDERED: warfarin 3mg tablet PO ONE (21:00)
[2018-07-06] MEDS ORDERED: normal saline 500ml IV soln 500 ML IV SCH (00:20)
[2018-07-06] MEDS ORDERED: VANCOMYCIN LEVEL IV NR (20:30)
== END 2018-07-05 17:10 | DRG 501 ==
LOC: SUR 3N 15:20
PROVIDERS: ADMIT Internal Medicine; ATTEND Family Medicine
PROC: 30233L1 Transfusion of Nonautologous Fresh Plasma into Peripheral Vein, Percutaneous Approach (ICD-10-PCS; 2018-06-27)
PROC: 30233K1 Transfusion of Nonautologous Frozen Plasma into Peripheral Vein, Percutaneous Approach (ICD-10-PCS; 2018-06-27)
PROC: BQ2S1ZZ Computerized Tomography (CT Scan) of Left Lower Extremity using Low Osmolar Contrast (ICD-10-PCS; 2018-07-01)
PROC: 0K9T0ZZ Drainage of Left Lower Leg Muscle, Open Approach (ICD-10-PCS; principal; 2018-07-02 18:03)
DX: M66.0 Rupture of popliteal cyst (principal); L03.116 Cellulitis of left lower limb; D62 Acute posthemorrhagic anemia; E44.0 Moderate protein-calorie malnutrition; D68.9 Coagulation defect, unspecified; F32.3 Major depressive disorder, single episode, severe with psychotic features; I69.354 Hemiplegia and hemiparesis following cerebral infarction affecting left non-dominant side; N17.9 Acute kidney failure, unspecified; M62.82 Rhabdomyolysis; L02.416 Cutaneous abscess of left lower limb; S80.12XA Contusion of left lower leg, initial encounter; I10 Essential (primary) hypertension; X58.XXXA Exposure to other specified factors, initial encounter; D50.9 Iron deficiency anemia, unspecified; E87.6 Hypokalemia; Z95.2 Presence of prosthetic heart valve; Z88.6 Allergy status to analgesic agent; Z91.048 Other nonmedicinal substance allergy status; Z79.01 Long term (current) use of anticoagulants; Z79.02 Long term (current) use of antithrombotics/antiplatelets; Z79.899 Other long term (current) drug therapy; Z68.25 Body mass index [BMI] 25.0-25.9, adult; Y93.89 Activity, other specified; Y92.89 Other specified places as the place of occurrence of the external cause; Y99.8 Other external cause status
CPT/HCPCS: 36415; 73701; 80048; 80053; 80202; 82272; 82550; 82728; 83540; 83550; 83605; 83690; 83735; 83880; 84100; 84132; 84145; 85025; 85610; 85730; 86885; 86900; 86901; 86920; 87040; 87070; 87088; 97110; 97116; 97162; 97530; A6446; A6449; A7000; A9579; J1650; J2250; J2543; J2704; J3010; J3370; J3490; J7030; P9059; Q9967

== ENCOUNTER 2018-07-05 13:16 | Inpatient (IN) | payer MEDICARE, MEDICAID ==
[~2018-07-05] VITALS: Ht 180.3 cm; Wt 54.7 kg
[~2018-07-05 13:16] MED LIST changes: +ACET-2119 PO; +ACET-2144 PO; +CEFD300C3 PO; +CLIN300C3 PO; +ENOX80DI10 SUBCUT; +FER325T PO; +FLO0.4C PO; +HYDR-4353 PO; +HYDR-4383 PO; +LACT1CAP26 PO; +LACTC PO; +LEVO500T2 PO; +LURA120T PO; +LURA40TA3 PO; +MAG355OR18 PO; +MAGN400O6 PO; +PANT-47 PO; +WARF6TAB PO; +ZOLP5TAB8 PO
[2018-07-05] MEDS ORDERED: acetaminophen 325mg tablet PO PRN ×3 (18:15→20:10)
[2018-07-05] MEDS ORDERED: magnesium hydroxide 30ml (MOM) UD suspension PO PRN ×2 (18:15→20:10)
[2018-07-05 20:00] VITALS: BP 106/78
[2018-07-05] MEDS ORDERED: temazepam 15mg capsule PO PRN (20:05)
[2018-07-05] MEDS ORDERED: olanzapine 10mg tablet PO PRN (20:05)
[2018-07-05] MEDS ORDERED: ondansetron/PF 4mg/2ml inj IV PRN (20:05)
[2018-07-05] MEDS ORDERED: metoclopramide 5 mg/ml inj IV PRN (20:05)
[2018-07-05] MEDS ORDERED: potassium Cl 20 mEq SR tablet PO PRN ×2 (20:10→20:15)
[2018-07-05] MEDS ORDERED: diphenhydrAMINE 50 mg/ml inj IV PRN (20:10)
[2018-07-05] MEDS ORDERED: acetaminophen 650mg rectal suppository RC PRN (20:10)
[2018-07-05] MEDS ORDERED: mag hydrox/Alum hydrox/simeth 30ml oral suspension PO PRN (20:10)
[2018-07-05] MEDS ORDERED: magnesium 1gm/100ml D5W IVPB 100 ML IV PRN ×2 (20:10)
[2018-07-05] MEDS ORDERED: bisacodyl 10mg suppository rectal RC PRN (20:10)
[2018-07-05] MEDS ORDERED: diphenhydrAMINE 25mg capsule PO PRN (20:10)
[2018-07-05] MEDS ORDERED: potassium Cl 40MEQ/NS 500ml 500 ML IV PRN ×2 (20:15)
[2018-07-05] MEDS ORDERED: olanzapine 10mg tablet PO SCH (21:00)
[2018-07-05] MEDS ORDERED: warfarin 3mg tablet PO ONE (21:00)
[2018-07-05] MEDS ORDERED: VANCOMYCIN 750MG IV in NS 250 ML IV SCH (21:00)
[2018-07-05] MEDS: zolpidem 5mg tablet PO SCH (21:18)
[2018-07-06] MEDS ORDERED: piperacillin/tazo 3.375gm/50ml 50 ML IV SCH (02:00)
[2018-07-06] MEDS ORDERED: olanzapine 10mg tablet PO PRN (03:41)
[2018-07-06 07:06] LABS: CHOL/HDL RATIO 4.7 (0.00-4.99); CHOLESTEROL 169 MG/DL (0-200); HDL CHOLESTEROL 36 MG/DL (35-60); LDL CHOLESTEROL 110 MG/DL (50-100); TRIGLYCERIDES 146 MG/DL (20-135)
[2018-07-06] MEDS: tamsulosin 0.4mg capsule PO SCH (07:56)
[2018-07-06] MEDS: lurasidone 20mg tablet PO SCH (07:56)
[2018-07-06] MEDS: pantoprazole 40mg Tablet.DR PO SCH (07:56)
[2018-07-06] MEDS: lactobacillus rhamnosus 10,000 MMU CELLS/CAPSULE PO SCH ×2 (07:57→20:26)
[2018-07-06] MEDS: PARoxetine 10mg tablet PO SCH (07:57)
[2018-07-06] MEDS: ferrous sulfate 325mg tablet PO SCH ×3 (07:58→17:36)
[2018-07-06 08:00] VITALS: BP 97/72
[2018-07-06] MEDS ORDERED: docusate sod 100mg capsule PO SCH (08:00)
[2018-07-06] MEDS: enoxaparin 80mg/0.8ml syringe SUBCUT SCH ×2 (08:00→20:29)
[2018-07-06] MEDS: buPROPion 75mg tablet PO SCH ×2 (08:02→20:27)
[2018-07-06 15:12] LABS: INR 1.3 INR
[2018-07-06] MEDS: lurasidone 60mg tablet PO SCH (17:36)
[2018-07-06 20:13] VITALS: BP 118/72
[2018-07-06] MEDS: OLANZapine 5mg rapidly disint. tablet PO SCH (20:27)
[2018-07-06] MEDS: HYDROcodone/acetaminophen 10/325mg tab PO PRN (20:27)
[2018-07-06] MEDS: zolpidem 5mg tablet PO SCH (20:28)
[2018-07-06] MEDS ORDERED: warfarin 4mg tablet PO ONE (21:00)
[2018-07-07 05:59] LABS: INR 1.3 INR; PROTHROMBIN TIME 13.7 SECONDS (9.0-12.0)
[2018-07-07] MEDS: pantoprazole 40mg Tablet.DR PO SCH (07:45)
[2018-07-07] MEDS: enoxaparin 80mg/0.8ml syringe SUBCUT SCH ×2 (07:46→20:25)
[2018-07-07 08:00] VITALS: BP 112/74
[2018-07-07] MEDS: lactobacillus rhamnosus 10,000 MMU CELLS/CAPSULE PO SCH ×2 (08:20→20:00)
[2018-07-07] MEDS: PARoxetine 10mg tablet PO SCH (08:20)
[2018-07-07] MEDS: tamsulosin 0.4mg capsule PO SCH (08:20)
[2018-07-07] MEDS: lurasidone 20mg tablet PO SCH (08:20)
[2018-07-07] MEDS: buPROPion 75mg tablet PO SCH ×2 (08:21→20:22)
[2018-07-07] MEDS: ferrous sulfate 325mg tablet PO SCH ×3 (08:21→17:28)
[2018-07-07] MEDS: cefpodoxime proxetil 100mg tablet PO SCH ×2 (08:21→17:28)
[2018-07-07] MEDS: lurasidone 60mg tablet PO SCH (17:28)
[2018-07-07 19:11] VITALS: BP 119/72
[2018-07-07] MEDS: HYDROcodone/acetaminophen 10/325mg tab PO PRN (19:28)
[2018-07-07] MEDS: zolpidem 5mg tablet PO SCH (20:22)
[2018-07-07] MEDS: OLANZapine 5mg rapidly disint. tablet PO SCH (20:23)
[2018-07-07] MEDS ORDERED: warfarin 5mg tablet PO ONE (21:00)
[2018-07-08 01:20] VITALS: BP 115/81
[2018-07-08 01:21] VITALS: BP 109/73
[2018-07-08 01:22] VITALS: BP 125/76
[2018-07-08 02:52] LABS: BASOPHILS # (AUTO) 0.1 X10'3 (0-0.2); BASOPHILS % (AUTO) 1.3 % (0-1); EOSINOPHILS # (AUTO) 0.6 X10'3 (0-0.9); EOSINOPHILS % (AUTO) 11.7 % (0-6); HEMOGLOBIN 8.6 g/dl (14.0-17.9); LYMPHOCYTES # (AUTO) 0.9 X10'3 (1.1-4.8); LYMPHOCYTES % (AUTO) 17.1 % (21-51); MEAN CORPUSCULAR HEMOGLOBIN 29.6 PG (27.0-31.0); MEAN CORPUSCULAR HGB CONC 33.2 % (33.0-36.5); MEAN CORPUSCULAR VOLUME 89.2 FL (78-98); MEAN PLATELET VOLUME 8.4 FL (7.4-10.4); MONOCYTES # (AUTO) 0.5 X10'3 (0-0.9); MONOCYTES % (AUTO) 9.2 % (2-12); NEUTROPHILS % (AUTO) 60.7 % (42-75); PLATELET COUNT 318 X10'3 (140-440); RED BLOOD COUNT 2.92 X10'6 (4.70-6.10); RED CELL DISTRIBUTION WIDTH 15.3 % (11.5-14.5)
[2018-07-08 03:03] LABS: INR 1.6 INR; PROTHROMBIN TIME 16.1 SECONDS (9.0-12.0)
[2018-07-08 03:06] LABS: ALANINE AMINOTRANSFERASE 23 U/L (12-78); ALBUMIN 2.7 G/DL (3.4-5.0); ALBUMIN/GLOBULIN RATIO 0.8 (1.1-1.5); ALKALINE PHOSPHATASE 56 IU/L (46-116); ANION GAP 9 (8-16); ASPARTATE AMINO TRANSFERASE 16 U/L (10-37); BILIRUBIN,TOTAL 0.4 MG/DL (0.1-1.0); BLOOD UREA NITROGEN 14 MG/DL (7-18); BUN/CREATININE RATIO 11.2 (5.4-32.0); CALCIUM 8.6 MG/DL (8.5-10.1); CHLORIDE 108 MMOL/L (99-107); CREATININE 1.25 MG/DL (0.60-1.10); GLUCOSE 94 MG/DL (70-104); POTASSIUM 3.5 MMOL/L (3.5-5.1); SODIUM 143 MMOL/L (135-145); TOTAL CARBON DIOXIDE 25.7 MMOL/L (24-32); eGFR 59 ML/MIN
[2018-07-08 03:10] LABS: TROPONIN I < 0.04 NG/ML (0.0-0.05)
[2018-07-08] MEDS: pantoprazole 40mg Tablet.DR PO SCH (07:30)
[2018-07-08] MEDS: HYDROcodone/acetaminophen 10/325mg tab PO PRN ×3 (07:35→19:32)
[2018-07-08 08:00] VITALS: BP 113/74
[2018-07-08] MEDS: PARoxetine 10mg tablet PO SCH (08:00)
[2018-07-08] MEDS: buPROPion 75mg tablet PO SCH ×2 (08:00→20:29)
[2018-07-08] MEDS: lactobacillus rhamnosus 10,000 MMU CELLS/CAPSULE PO SCH ×2 (08:00→20:29)
[2018-07-08] MEDS: tamsulosin 0.4mg capsule PO SCH (08:00)
[2018-07-08] MEDS: cefpodoxime proxetil 100mg tablet PO SCH ×2 (08:00→17:38)
[2018-07-08] MEDS: lurasidone 20mg tablet PO SCH (08:01)
[2018-07-08] MEDS: enoxaparin 80mg/0.8ml syringe SUBCUT SCH ×2 (08:01→20:30)
[2018-07-08] MEDS: ferrous sulfate 325mg tablet PO SCH ×3 (08:01→17:38)
[2018-07-08 08:06] LABS: BASOPHILS % (AUTO) 0.4 % (0-1); EOSINOPHILS # (AUTO) 0.6 X10'3 (0-0.9); EOSINOPHILS % (AUTO) 7.3 % (0-6); HEMATOCRIT 29.4 % (42.0-52.0); HEMOGLOBIN 9.8 g/dl (14.0-17.9); LYMPHOCYTES # (AUTO) 0.7 X10'3 (1.1-4.8); LYMPHOCYTES % (AUTO) 9.8 % (21-51); MEAN CORPUSCULAR HEMOGLOBIN 29.6 PG (27.0-31.0); MEAN CORPUSCULAR HGB CONC 33.3 % (33.0-36.5); MEAN CORPUSCULAR VOLUME 88.9 FL (78-98); MEAN PLATELET VOLUME 8.7 FL (7.4-10.4); MONOCYTES # (AUTO) 0.5 X10'3 (0-0.9); MONOCYTES % (AUTO) 6.6 % (2-12); NEUTROPHILS # (AUTO) 5.7 X10'3 (1.8-7.7); NEUTROPHILS % (AUTO) 75.9 % (42-75); PLATELET COUNT 361 X10'3 (140-440); RED CELL DISTRIBUTION WIDTH 15.4 % (11.5-14.5); WHITE BLOOD COUNT 7.5 X10'3 (4.5-11.0)
[2018-07-08 08:17] LABS: INR 1.6 INR; PROTHROMBIN TIME 16.4 SECONDS (9.0-12.0)
[2018-07-08] MEDS: lurasidone 60mg tablet PO SCH (17:39)
[2018-07-08 19:00] VITALS: BP 107/69
[2018-07-08] MEDS: zolpidem 5mg tablet PO SCH (20:30)
[2018-07-08] MEDS: OLANZapine 5mg rapidly disint. tablet PO SCH (20:32)
[2018-07-08] MEDS ORDERED: warfarin 5mg tablet PO ONE (21:00)
[2018-07-09] MEDS: enoxaparin 80mg/0.8ml syringe SUBCUT SCH ×2 (07:43→20:37)
[2018-07-09] MEDS: lurasidone 20mg tablet PO SCH (07:44)
[2018-07-09] MEDS: buPROPion 75mg tablet PO SCH ×2 (07:45→12:32)
[2018-07-09] MEDS: ferrous sulfate 325mg tablet PO SCH ×3 (07:45→17:34)
[2018-07-09] MEDS: lactobacillus rhamnosus 10,000 MMU CELLS/CAPSULE PO SCH ×2 (07:45→20:36)
[2018-07-09] MEDS: cefpodoxime proxetil 100mg tablet PO SCH ×2 (07:45→17:30)
[2018-07-09] MEDS: tamsulosin 0.4mg capsule PO SCH (07:45)
[2018-07-09] MEDS: pantoprazole 40mg Tablet.DR PO SCH (07:45)
[2018-07-09] MEDS: PARoxetine 10mg tablet PO SCH (07:45)
[2018-07-09 07:56] LABS: INR 1.9 INR; PROTHROMBIN TIME 19.6 SECONDS (9.0-12.0)
[2018-07-09 08:00] VITALS: BP 102/68
[2018-07-09] MEDS ORDERED: PARoxetine 10mg tablet PO ONE (11:15)
[2018-07-09] MEDS: protein shake 8oz. (237ml) PO SCH ×2 (13:09→17:38)
[2018-07-09] MEDS: HYDROcodone/acetaminophen 10/325mg tab PO PRN ×2 (13:32→17:56)
[2018-07-09] MEDS: lurasidone 60mg tablet PO SCH (17:34)
[2018-07-09 19:00] VITALS: BP 112/63
[2018-07-09] MEDS: zolpidem 5mg tablet PO SCH (20:37)
[2018-07-09] MEDS: OLANZapine 5mg rapidly disint. tablet PO SCH (20:38)
[2018-07-09] MEDS ORDERED: warfarin 10mg tablet PO ONE (21:00)
[2018-07-10] MEDS: HYDROcodone/acetaminophen 10/325mg tab PO PRN ×4 (02:54→19:32)
[2018-07-10] MEDS: lurasidone 20mg tablet PO SCH (07:41)
[2018-07-10] MEDS: tamsulosin 0.4mg capsule PO SCH (07:42)
[2018-07-10] MEDS: buPROPion 75mg tablet PO SCH ×2 (07:43→13:14)
[2018-07-10] MEDS: lactobacillus rhamnosus 10,000 MMU CELLS/CAPSULE PO SCH ×2 (07:43→21:08)
[2018-07-10] MEDS: PARoxetine 10mg tablet PO SCH (07:43)
[2018-07-10] MEDS: enoxaparin 80mg/0.8ml syringe SUBCUT SCH ×2 (07:46→21:09)
[2018-07-10] MEDS: pantoprazole 40mg Tablet.DR PO SCH (07:46)
[2018-07-10] MEDS: cefpodoxime proxetil 100mg tablet PO SCH ×2 (07:56→17:38)
[2018-07-10] MEDS: ferrous sulfate 325mg tablet PO SCH ×3 (07:56→17:38)
[2018-07-10] MEDS: protein shake 8oz. (237ml) PO SCH ×3 (08:00→17:40)
[2018-07-10 08:03] VITALS: BP 109/69
[2018-07-10 10:07] LABS: INR 2.1 INR; PROTHROMBIN TIME 20.7 SECONDS (9.0-12.0)
[2018-07-10] MEDS: lurasidone 60mg tablet PO SCH (17:38)
[2018-07-10 19:00] VITALS: BP 101/63
[2018-07-10] MEDS ORDERED: ibuprofen 200mg tablet PO PRN (19:10)
[2018-07-10] MEDS ORDERED: warfarin 10mg tablet PO ONE (21:00)
[2018-07-10] MEDS: zolpidem 5mg tablet PO SCH (21:07)
[2018-07-10] MEDS: OLANZapine 5mg rapidly disint. tablet PO SCH (21:09)
[2018-07-10] MEDS ORDERED: HYDROmorphone 2mg tablet PO ONE (21:55)
[2018-07-11 08:00] VITALS: BP 107/67
[2018-07-11 08:01] LABS: INR 2.2 INR; PROTHROMBIN TIME 22.5 SECONDS (9.0-12.0)
[2018-07-11] MEDS: ferrous sulfate 325mg tablet PO SCH ×3 (08:27→18:02)
[2018-07-11] MEDS: pantoprazole 40mg Tablet.DR PO SCH (08:27)
[2018-07-11] MEDS: PARoxetine 10mg tablet PO SCH (08:27)
[2018-07-11] MEDS: lactobacillus rhamnosus 10,000 MMU CELLS/CAPSULE PO SCH ×2 (08:28→21:26)
[2018-07-11] MEDS: lurasidone 20mg tablet PO SCH (08:29)
[2018-07-11] MEDS: tamsulosin 0.4mg capsule PO SCH (08:29)
[2018-07-11] MEDS: HYDROcodone/acetaminophen 10/325mg tab PO PRN (08:29)
[2018-07-11] MEDS: buPROPion 100mg tablet PO SCH ×2 (08:30→13:00)
[2018-07-11] MEDS: protein shake 8oz. (237ml) PO SCH ×3 (08:30→18:04)
[2018-07-11] MEDS: cefpodoxime proxetil 100mg tablet PO SCH ×2 (08:30→18:02)
[2018-07-11] MEDS: enoxaparin 80mg/0.8ml syringe SUBCUT SCH ×2 (08:33→20:00)
[2018-07-11] MEDS: lurasidone 60mg tablet PO SCH (18:02)
[2018-07-11 19:55] VITALS: BP 107/66
[2018-07-11] MEDS ORDERED: warfarin 4mg tablet PO ONE (21:00)
[2018-07-11] MEDS: OLANZapine 5mg rapidly disint. tablet PO SCH (21:22)
[2018-07-11] MEDS: zolpidem 5mg tablet PO SCH (21:24)
[2018-07-12 07:00] LABS: INR 2.7 INR; PROTHROMBIN TIME 26.8 SECONDS (9.0-12.0)
[2018-07-12] MEDS: HYDROcodone/acetaminophen 10/325mg tab PO PRN ×3 (07:42→17:03)
[2018-07-12] MEDS: pantoprazole 40mg Tablet.DR PO SCH (07:42)
[2018-07-12] MEDS: tamsulosin 0.4mg capsule PO SCH (08:04)
[2018-07-12] MEDS: lurasidone 20mg tablet PO SCH (08:04)
[2018-07-12] MEDS: lactobacillus rhamnosus 10,000 MMU CELLS/CAPSULE PO SCH ×2 (08:04→20:22)
[2018-07-12] MEDS: ferrous sulfate 325mg tablet PO SCH ×3 (08:04→17:37)
[2018-07-12] MEDS: PARoxetine 10mg tablet PO SCH (08:04)
[2018-07-12] MEDS: buPROPion 100mg tablet PO SCH ×2 (08:04→12:55)
[2018-07-12] MEDS: enoxaparin 80mg/0.8ml syringe SUBCUT SCH (08:05)
[2018-07-12] MEDS: cefpodoxime proxetil 100mg tablet PO SCH ×2 (08:05→17:37)
[2018-07-12 08:07] VITALS: BP 109/65
[2018-07-12] MEDS: protein shake 8oz. (237ml) PO SCH ×3 (08:12→17:53)
[2018-07-12] MEDS: lurasidone 60mg tablet PO SCH (17:37)
[2018-07-12 19:42] VITALS: BP 111/67
[2018-07-12] MEDS: zolpidem 5mg tablet PO SCH (20:23)
[2018-07-12] MEDS ORDERED: OLANZapine 2.5MG tablet PO SCH (21:00)
[2018-07-12] MEDS ORDERED: warfarin 4mg tablet PO ONE (21:00)
[2018-07-13 08:00] VITALS: BP 107/58
[2018-07-13] MEDS: lurasidone 20mg tablet PO SCH (08:04)
[2018-07-13] MEDS: PARoxetine 10mg tablet PO SCH (08:04)
[2018-07-13] MEDS: pantoprazole 40mg Tablet.DR PO SCH (08:04)
[2018-07-13] MEDS: lactobacillus rhamnosus 10,000 MMU CELLS/CAPSULE PO SCH ×2 (08:05→20:24)
[2018-07-13] MEDS: cefpodoxime proxetil 100mg tablet PO SCH ×2 (08:05→18:54)
[2018-07-13] MEDS: tamsulosin 0.4mg capsule PO SCH (08:05)
[2018-07-13] MEDS: buPROPion 100mg tablet PO SCH (08:05)
[2018-07-13] MEDS: HYDROcodone/acetaminophen 10/325mg tab PO PRN ×2 (08:05→13:09)
[2018-07-13] MEDS: ferrous sulfate 325mg tablet PO SCH ×3 (08:05→17:48)
[2018-07-13] MEDS: protein shake 8oz. (237ml) PO SCH ×3 (08:06→17:48)
[2018-07-13 08:51] LABS: INR 3.1 INR; PROTHROMBIN TIME 30.4 SECONDS (9.0-12.0)
[2018-07-13] MEDS ORDERED: tizanidine 4mg tablet PO PRN (10:05)
[2018-07-13] MEDS: lurasidone 60mg tablet PO SCH (17:48)
[2018-07-13 19:50] VITALS: BP 99/58
[2018-07-13] MEDS: zolpidem 5mg tablet PO SCH (20:25)
[2018-07-13] MEDS ORDERED: warfarin 7.5mg tablet PO ONE (21:00)
[2018-07-14 08:09] VITALS: BP 106/63
[2018-07-14] MEDS: lurasidone 20mg tablet PO SCH (08:10)
[2018-07-14] MEDS: PARoxetine 10mg tablet PO SCH (08:10)
[2018-07-14] MEDS: tamsulosin 0.4mg capsule PO SCH (08:10)
[2018-07-14] MEDS: lactobacillus rhamnosus 10,000 MMU CELLS/CAPSULE PO SCH ×2 (08:10→20:11)
[2018-07-14] MEDS: protein shake 8oz. (237ml) PO SCH ×3 (08:10→18:07)
[2018-07-14] MEDS: pantoprazole 40mg Tablet.DR PO SCH (08:10)
[2018-07-14] MEDS: ferrous sulfate 325mg tablet PO SCH ×3 (08:12→17:54)
[2018-07-14 08:41] LABS: INR 2.8 INR; PROTHROMBIN TIME 27.8 SECONDS (9.0-12.0)
[2018-07-14] MEDS: HYDROcodone/acetaminophen 10/325mg tab PO PRN ×2 (09:23→20:13)
[2018-07-14] MEDS: cefpodoxime proxetil 100mg tablet PO SCH ×2 (09:25→17:54)
[2018-07-14] MEDS: lurasidone 60mg tablet PO SCH (17:54)
[2018-07-14 19:00] VITALS: BP 104/70
[2018-07-14] MEDS: zolpidem 5mg tablet PO SCH (20:11)
[2018-07-14] MEDS ORDERED: warfarin 3mg tablet PO ONE (21:00)
[2018-07-15] MEDS: HYDROcodone/acetaminophen 5mg/325mg tablet PO PRN ×4 (01:52→20:24)
[2018-07-15 08:23] VITALS: BP 116/72
[2018-07-15 08:38] LABS: INR 2.8 INR; PROTHROMBIN TIME 28.3 SECONDS (9.0-12.0)
[2018-07-15] MEDS: lurasidone 20mg tablet PO SCH (08:49)
[2018-07-15] MEDS: tamsulosin 0.4mg capsule PO SCH (08:49)
[2018-07-15] MEDS: ferrous sulfate 325mg tablet PO SCH ×3 (08:49→17:56)
[2018-07-15] MEDS: lactobacillus rhamnosus 10,000 MMU CELLS/CAPSULE PO SCH ×2 (08:49→20:21)
[2018-07-15] MEDS: pantoprazole 40mg Tablet.DR PO SCH (08:50)
[2018-07-15] MEDS: cefpodoxime proxetil 100mg tablet PO SCH ×2 (08:50→17:56)
[2018-07-15] MEDS: PARoxetine 10mg tablet PO SCH (08:55)
[2018-07-15] MEDS: protein shake 8oz. (237ml) PO SCH ×3 (08:55→18:01)
[2018-07-15] MEDS ORDERED: clonazePAM 0.5mg tablet PO ONE (13:35)
[2018-07-15] MEDS: lurasidone 60mg tablet PO SCH (17:56)
[2018-07-15 19:00] VITALS: BP 103/64
[2018-07-15] MEDS: zolpidem 5mg tablet PO SCH (20:22)
[2018-07-15] MEDS: clonazePAM 0.5mg tablet PO SCH (20:22)
[2018-07-15] MEDS ORDERED: warfarin 10mg tablet PO ONE (21:00)
[2018-07-16 07:38] VITALS: BP 107/68
[2018-07-16] MEDS: pantoprazole 40mg Tablet.DR PO SCH (07:38)
[2018-07-16] MEDS: lactobacillus rhamnosus 10,000 MMU CELLS/CAPSULE PO SCH ×2 (08:03→20:33)
[2018-07-16] MEDS: lurasidone 20mg tablet PO SCH (08:03)
[2018-07-16] MEDS: tamsulosin 0.4mg capsule PO SCH (08:03)
[2018-07-16] MEDS: ferrous sulfate 325mg tablet PO SCH ×3 (08:04→17:48)
[2018-07-16] MEDS: PARoxetine 10mg tablet PO SCH (08:04)
[2018-07-16] MEDS: HYDROcodone/acetaminophen 5mg/325mg tablet PO PRN ×3 (08:04→20:34)
[2018-07-16] MEDS: clonazePAM 0.5mg tablet PO SCH ×2 (08:05→20:33)
[2018-07-16] MEDS: protein shake 8oz. (237ml) PO SCH ×3 (08:06→17:36)
[2018-07-16] MEDS: cefpodoxime proxetil 100mg tablet PO SCH (08:06)
[2018-07-16 11:09] LABS: INR 3.7 INR; PROTHROMBIN TIME 36.7 SECONDS (9.0-12.0)
[2018-07-16] MEDS: lurasidone 60mg tablet PO SCH (17:48)
[2018-07-16 19:00] VITALS: BP 111/68
[2018-07-16] MEDS: zolpidem 5mg tablet PO SCH (20:34)
[2018-07-17 08:00] VITALS: BP 107/68
[2018-07-17] MEDS: protein shake 8oz. (237ml) PO SCH ×3 (08:00→17:44)
[2018-07-17] MEDS: PARoxetine 10mg tablet PO SCH (08:10)
[2018-07-17] MEDS: lactobacillus rhamnosus 10,000 MMU CELLS/CAPSULE PO SCH ×2 (08:10→20:36)
[2018-07-17] MEDS: clonazePAM 0.5mg tablet PO SCH ×2 (08:11→20:36)
[2018-07-17] MEDS: lurasidone 20mg tablet PO SCH (08:11)
[2018-07-17] MEDS: pantoprazole 40mg Tablet.DR PO SCH (08:12)
[2018-07-17] MEDS: tamsulosin 0.4mg capsule PO SCH (08:12)
[2018-07-17] MEDS: ferrous sulfate 325mg tablet PO SCH ×3 (08:30→17:47)
[2018-07-17 10:57] LABS: INR 3.3 INR; PROTHROMBIN TIME 32.9 SECONDS (9.0-12.0)
[2018-07-17] MEDS: lurasidone 60mg tablet PO SCH (17:47)
[2018-07-17] MEDS: HYDROcodone/acetaminophen 10/325mg tab PO PRN (18:09)
[2018-07-17 19:00] VITALS: BP 104/68
[2018-07-17] MEDS: zolpidem 5mg tablet PO SCH (20:36)
[2018-07-17] MEDS ORDERED: warfarin 7.5mg tablet PO ONE (21:00)
[2018-07-18] MEDS: clonazePAM 0.5mg tablet PO SCH ×2 (07:41→21:12)
[2018-07-18] MEDS: lactobacillus rhamnosus 10,000 MMU CELLS/CAPSULE PO SCH ×2 (07:41→21:11)
[2018-07-18] MEDS: pantoprazole 40mg Tablet.DR PO SCH (07:41)
[2018-07-18] MEDS: tamsulosin 0.4mg capsule PO SCH (07:41)
[2018-07-18] MEDS: PARoxetine 10mg tablet PO SCH (07:41)
[2018-07-18] MEDS: lurasidone 20mg tablet PO SCH ×2 (07:41→21:11)
[2018-07-18 08:00] VITALS: BP 107/80
[2018-07-18] MEDS: protein shake 8oz. (237ml) PO SCH ×3 (08:00→18:00)
[2018-07-18 08:36] LABS: INR 2.7 INR; PROTHROMBIN TIME 27.3 SECONDS (9.0-12.0)
[2018-07-18] MEDS: ferrous sulfate 325mg tablet PO SCH ×3 (09:24→17:30)
[2018-07-18] MEDS ORDERED: PANT40TA4 PO (09:29)
[2018-07-18] MEDS ORDERED: HYDR-4383 PO (09:29)
[2018-07-18] MEDS ORDERED: PARO20TA6 PO (09:29)
[2018-07-18] MEDS ORDERED: CLON0.5T12 PO (09:29)
[2018-07-18] MEDS ORDERED: LURA120T PO (09:29)
[2018-07-18] MEDS ORDERED: ZOLP10TA PO (09:29)
[2018-07-18] MEDS ORDERED: LURA40TA3 PO (09:29)
[2018-07-18] MEDS ORDERED: FER325T PO (09:29)
[2018-07-18] MEDS ORDERED: TAMS0.4C32 PO (09:29)
[2018-07-18] MEDS ORDERED: COU7.5T PO (09:31)
[2018-07-18] MEDS: HYDROcodone/acetaminophen 5mg/325mg tablet PO PRN (14:15)
[2018-07-18] MEDS: HYDROcodone/acetaminophen 10/325mg tab PO PRN (19:11)
[2018-07-18 19:37] VITALS: BP 118/73
[2018-07-18] MEDS ORDERED: warfarin 4mg tablet PO ONE (21:00)
[2018-07-18] MEDS: zolpidem 5mg tablet PO SCH (21:11)
[2018-07-18] MEDS: lurasidone 60mg tablet PO SCH (21:15)
[2018-07-19 06:38] LABS: INR 3.2 INR; PROTHROMBIN TIME 31.3 SECONDS (9.0-12.0)
[2018-07-19] MEDS: clonazePAM 0.5mg tablet PO SCH ×2 (07:56→20:53)
[2018-07-19] MEDS: lurasidone 20mg tablet PO SCH (07:56)
[2018-07-19] MEDS: lactobacillus rhamnosus 10,000 MMU CELLS/CAPSULE PO SCH ×2 (07:57→20:53)
[2018-07-19] MEDS: pantoprazole 40mg Tablet.DR PO SCH (07:57)
[2018-07-19] MEDS: HYDROcodone/acetaminophen 10/325mg tab PO PRN ×2 (07:57→19:18)
[2018-07-19] MEDS: ferrous sulfate 325mg tablet PO SCH ×3 (07:57→20:53)
[2018-07-19] MEDS: protein shake 8oz. (237ml) PO SCH ×3 (07:57→18:00)
[2018-07-19] MEDS: PARoxetine 10mg tablet PO SCH (07:57)
[2018-07-19] MEDS: tamsulosin 0.4mg capsule PO SCH (07:58)
[2018-07-19 08:00] VITALS: BP 115/64
[2018-07-19] MEDS: HYDROcodone/acetaminophen 5mg/325mg tablet PO PRN (15:07)
[2018-07-19 15:08] LABS: BASOPHILS # (AUTO) 0.1 X10'3 (0-0.2); BASOPHILS % (AUTO) 1.1 % (0-1); EOSINOPHILS # (AUTO) 0.3 X10'3 (0-0.9); EOSINOPHILS % (AUTO) 4.9 % (0-6); HEMATOCRIT 31.2 % (42.0-52.0); HEMOGLOBIN 10.6 g/dl (14.0-17.9); LYMPHOCYTES # (AUTO) 0.9 X10'3 (1.1-4.8); LYMPHOCYTES % (AUTO) 17.7 % (21-51); MEAN CORPUSCULAR HEMOGLOBIN 29.8 PG (27.0-31.0); MEAN CORPUSCULAR VOLUME 87.7 FL (78-98); MEAN PLATELET VOLUME 8.5 FL (7.4-10.4); MONOCYTES # (AUTO) 0.4 X10'3 (0-0.9); NEUTROPHILS # (AUTO) 3.6 X10'3 (1.8-7.7); NEUTROPHILS % (AUTO) 68.3 % (42-75); PLATELET COUNT 311 X10'3 (140-440); RED BLOOD COUNT 3.56 X10'6 (4.70-6.10); RED CELL DISTRIBUTION WIDTH 14.6 % (11.5-14.5); WHITE BLOOD COUNT 5.3 X10'3 (4.5-11.0)
[2018-07-19 15:10] LABS: ANION GAP 9 (8-16); BLOOD UREA NITROGEN 15 MG/DL (7-18); CALCIUM 8.5 MG/DL (8.5-10.1); CHLORIDE 105 MMOL/L (99-107); CREATININE 1.36 MG/DL (0.60-1.10); GLUCOSE 149 MG/DL (70-104); POTASSIUM 3.7 MMOL/L (3.5-5.1); SODIUM 141 MMOL/L (135-145); TOTAL CARBON DIOXIDE 27.4 MMOL/L (24-32); eGFR 54 ML/MIN
[2018-07-19 19:58] VITALS: BP 103/67
[2018-07-19] MEDS: zolpidem 5mg tablet PO SCH (20:53)
[2018-07-19] MEDS: lurasidone 60mg tablet PO SCH (20:54)
[2018-07-19] MEDS ORDERED: warfarin 3mg tablet PO ONE (21:00)
[2018-07-20 08:00] VITALS: BP 114/67
[2018-07-20] MEDS: tamsulosin 0.4mg capsule PO SCH (08:10)
[2018-07-20] MEDS: lactobacillus rhamnosus 10,000 MMU CELLS/CAPSULE PO SCH ×2 (08:10→20:11)
[2018-07-20] MEDS: ferrous sulfate 325mg tablet PO SCH ×3 (08:10→19:18)
[2018-07-20] MEDS: PARoxetine 10mg tablet PO SCH (08:10)
[2018-07-20] MEDS: pantoprazole 40mg Tablet.DR PO SCH (08:10)
[2018-07-20] MEDS: lurasidone 20mg tablet PO SCH (08:10)
[2018-07-20] MEDS: clonazePAM 0.5mg tablet PO SCH ×2 (08:12→20:11)
[2018-07-20] MEDS: protein shake 8oz. (237ml) PO SCH ×3 (08:12→18:58)
[2018-07-20 09:01] LABS: INR 2.8 INR; PROTHROMBIN TIME 27.5 SECONDS (9.0-12.0)
[2018-07-20] MEDS ORDERED: iohexol 300mg/ml 100ml inj. ONE (11:31)
[2018-07-20] MEDS: HYDROcodone/acetaminophen 10/325mg tab PO PRN ×2 (14:27→19:20)
[2018-07-20] MEDS: lurasidone 60mg tablet PO SCH (19:19)
[2018-07-20 20:00] VITALS: BP 104/66
[2018-07-20] MEDS: zolpidem 5mg tablet PO SCH (20:11)
[2018-07-20] MEDS ORDERED: warfarin 3mg tablet PO ONE (21:00)
[2018-07-21] MEDS: lactobacillus rhamnosus 10,000 MMU CELLS/CAPSULE PO SCH (08:08)
[2018-07-21] MEDS: pantoprazole 40mg Tablet.DR PO SCH (08:08)
[2018-07-21] MEDS: tamsulosin 0.4mg capsule PO SCH (08:09)
[2018-07-21 08:10] VITALS: BP 114/67
[2018-07-21] MEDS: lurasidone 20mg tablet PO SCH (08:10)
[2018-07-21] MEDS: clonazePAM 0.5mg tablet PO SCH (08:10)
[2018-07-21] MEDS: ferrous sulfate 325mg tablet PO SCH ×3 (08:10→17:48)
[2018-07-21] MEDS: PARoxetine 10mg tablet PO SCH (08:10)
[2018-07-21] MEDS: protein shake 8oz. (237ml) PO SCH ×3 (08:10→18:05)
[2018-07-21] MEDS: HYDROcodone/acetaminophen 5mg/325mg tablet PO PRN ×2 (08:11→16:25)
[2018-07-21 13:02] LABS: INR 2.3 INR
[2018-07-21] MEDS: lurasidone 60mg tablet PO SCH (17:48)
[2018-07-21] MEDS ORDERED: warfarin 7.5mg tablet PO ONE (21:00)
== END 2018-07-21 18:20 | DRG 885 ==
LOC: ADULT MH 13:16
PROVIDERS: ADMIT Psychiatry & Neurology Psychiatry; ATTEND Psychiatry & Neurology Psychiatry
PROC: BQ2S1ZZ Computerized Tomography (CT Scan) of Left Lower Extremity using Low Osmolar Contrast (ICD-10-PCS; principal; 2018-07-20)
DX: F33.2 Major depressive disorder, recurrent severe without psychotic features (principal); I69.354 Hemiplegia and hemiparesis following cerebral infarction affecting left non-dominant side; D64.9 Anemia, unspecified; F41.9 Anxiety disorder, unspecified; G89.29 Other chronic pain; M79.89 Other specified soft tissue disorders; M54.9 Dorsalgia, unspecified; F29 Unspecified psychosis not due to a substance or known physiological condition; M25.572 Pain in left ankle and joints of left foot; Z79.899 Other long term (current) drug therapy; Z88.6 Allergy status to analgesic agent; Z91.048 Other nonmedicinal substance allergy status; Z59.0 Homelessness; Z79.01 Long term (current) use of anticoagulants; Z95.2 Presence of prosthetic heart valve
CPT/HCPCS: 36415; 70450; 73701; 80048; 80053; 80061; 84484; 85025; 85610; 93971; 97110; 97116; 97162; 97530; A6213; J1650; J2543; J3370; J3490; J7030; Q9967

== ENCOUNTER 2018-07-22 05:30 | Emergency (ER) | payer MEDICARE, MEDICAID ==
[~2018-07-22] VITALS: Ht 180.3 cm; Wt 79.0 kg
[~2018-07-22 05:30] MED LIST changes: -ACET-2119 PO; -ACET-2144 PO; -BUPR150T27 PO; -CEFD300C3 PO; -CLIN300C3 PO; +CLON0.5T12 PO; -COU3T PO; +COU7.5T PO; -ENOX80DI10 SUBCUT; -FLO0.4C PO; -HYDR-4353 PO; -LACTC PO; -LEVO500T2 PO; -MAG355OR18 PO; -MAGN400O6 PO; -OLAN10TA3 PO; -OMEP40CA37 PO; -PANT-47 PO; +PANT40TA4 PO; -PARO10TA4 PO; +PARO20TA6 PO; -WARF6TAB PO; +ZOLP10TA PO; -ZOLP5TAB8 PO
[2018-07-22] MEDS ORDERED: HYDROcodone/acetaminophen 5mg/325mg tablet PO ONE (14:55)
[2018-07-22 17:38] VITALS: BP 155/89
== END 2018-07-22 17:40 | disposition home or self-care (01) ==
LOC: ER 05:30
DX: S09.90XA Unspecified injury of head, initial encounter (principal); G89.29 Other chronic pain; Z86.73 Personal history of transient ischemic attack (TIA), and cerebral infarction without residual deficits; Z98.890 Other specified postprocedural states; Z79.01 Long term (current) use of anticoagulants; Z79.899 Other long term (current) drug therapy; Z88.6 Allergy status to analgesic agent; Z88.8 Allergy status to other drugs, medicaments and biological substances; W01.198A Fall on same level from slipping, tripping and stumbling with subsequent striking against other object, initial encounter; Y93.89 Activity, other specified; Y92.89 Other specified places as the place of occurrence of the external cause; Y99.9 Unspecified external cause status
CPT/HCPCS: 70450; 72125; 99284

== ENCOUNTER 2018-11-23 10:19 | Emergency (ER) | payer MEDICARE, MEDICAID ==
[~2018-11-23] VITALS: Ht 185.4 cm; Wt 79.0 kg
[~2018-11-23 10:19] MED LIST changes: -COU7.5T PO
[2018-11-23 11:59] LABS: BASOPHILS # (AUTO) 0.1 X10'3 (0-0.2); BASOPHILS % (AUTO) 0.9 % (0-1); EOSINOPHILS # (AUTO) 0.1 X10'3 (0-0.9); EOSINOPHILS % (AUTO) 1.5 % (0-6); HEMATOCRIT 44.6 % (42.0-52.0); HEMOGLOBIN 15.4 g/dl (14.0-17.9); LYMPHOCYTES # (AUTO) 0.8 X10'3 (1.1-4.8); LYMPHOCYTES % (AUTO) 9.9 % (21-51); MEAN CORPUSCULAR HEMOGLOBIN 30.7 PG (27.0-31.0); MEAN CORPUSCULAR HGB CONC 34.4 g/dL (33.0-36.5); MEAN CORPUSCULAR VOLUME 89.1 FL (78-98); MEAN PLATELET VOLUME 9.4 FL (7.4-10.4); MONOCYTES # (AUTO) 0.4 X10'3 (0-0.9); MONOCYTES % (AUTO) 5.9 % (2-12); NEUTROPHILS # (AUTO) 6.2 X10'3 (1.8-7.7); NEUTROPHILS % (AUTO) 81.8 % (42-75); PLATELET COUNT 250 X10'3 (140-440); RED BLOOD COUNT 5.01 X10'6 (4.70-6.10); RED CELL DISTRIBUTION WIDTH 15.1 % (11.5-14.5); WHITE BLOOD COUNT 7.6 X10'3 (4.5-11.0)
[2018-11-23 12:14] LABS: ALANINE AMINOTRANSFERASE 40 U/L (12-78); ALBUMIN 3.8 G/DL (3.4-5.0); ALKALINE PHOSPHATASE 72 IU/L (46-116); ANION GAP 12 (8-16); ASPARTATE AMINO TRANSFERASE 27 U/L (10-37); BILIRUBIN,TOTAL 0.9 MG/DL (0.1-1.0); BLOOD UREA NITROGEN 10 MG/DL (7-18); BUN/CREATININE RATIO 8.8 (5.4-32.0); CALCIUM 8.9 MG/DL (8.5-10.1); CHLORIDE 104 MMOL/L (99-107); CREATININE 1.14 MG/DL (0.60-1.10); GLUCOSE 103 MG/DL (70-104); POTASSIUM 3.7 MMOL/L (3.5-5.1); SODIUM 139 MMOL/L (135-145); TOTAL CARBON DIOXIDE 23.3 MMOL/L (24-32); TOTAL PROTEIN 7.6 G/DL (6.4-8.2); eGFR 66 ML/MIN
[2018-11-23 12:22] LABS: ETHANOL < 0.010 GM/DL (0.0-0.010)
[2018-11-23 13:02] LABS: CLARITY,URINE CLEAR (Clear); GLUCOSE, URINE NEGATIVE (Neg); KETONES,URINE 15 mg/dl (Neg); LEUKOCYTE ESTERASE ,URINE NEGATIVE (Neg); NITRITES, URINE NEGATIVE (Neg); OCCULT BLOOD,URINE NEGATIVE (Neg); PH,URINE 5.5 (4.8-8.0); PROTEIN,URINE NEGATIVE (Neg); UROBILINOGEN,URINE 0.2 E.U/dL (0.2-1.0)
[2018-11-23 13:10] LABS: COLOR,URINE YELLOW (Yellow); UA COLLECTION TYPE VOIDED
[2018-11-23 13:15] LABS: URINE AMPHETAMINE SCREEN NEGATIVE (Neg); URINE BARBITUATE SCREEN NEGATIVE (Neg); URINE BENZODIAZEPINES SCREEN NEGATIVE (Neg); URINE CANNABINOID SCREEN NEGATIVE (Neg); URINE COCAINE SCREEN NEGATIVE (Neg); URINE METHADONE SCREEN NEGATIVE (Neg); URINE OPIATE SCREEN NEGATIVE (Neg); URINE PHENCYCLIDINE SCREEN NEGATIVE (Neg)
--- NOTE | 2018-11-23 13:50 | NUR ---
Pt received telepsych consult, Psychiatrist has recommended pt to be placed on hold and started on Zyprexa, recommendations to be faxed and will be reviewed with
[2018-11-23] MEDS ORDERED: LORazepam 1 MG tablet PO PRN (17:25)
[2018-11-23] MEDS ORDERED: LORazepam 2 mg/ml vial IM PRN (17:25)
--- NOTE | 2018-11-23 18:45 | NUR ---
PT WALKING AROUND ROOM, SECURITY OUTSIDE DOOR WATCHING PT.
[2018-11-23] MEDS: risperiDONE 2mg tablet PO SCH (20:27)
--- NOTE | 2018-11-23 21:30 | NUR ---
PT ASKING FOR WATER, GOT PT WATER AND GAVE HIM A BLANKET. PT LYING DOWN IN BED.
--- NOTE | 2018-11-24 01:47 | NUR ---
PT LYING ON LEFT SIDE WITH BLANKETS PULLED TO SHOULDERS. EVEN, UNLABORED BREATHS. NO DISTRESS NOTED. WILL CONTINUE TO MONITOR PT.
--- NOTE | 2018-11-24 04:52 | NUR ---
PT LYING SUPINE WITH BLANKETS PULLED TO SHOULDERS. EVEN, UNLABORED BREATHS. NO DISTRESS NOTED. WILL CONTINUE TO MONITOR.
--- NOTE | 2018-11-24 08:31 | NUR ---
PT ASKED TO USE THE PHONE, PROVIDED PT WITH PHONE AND WHEN DONE REMOVED PHONE FROM PTS ROOM. PROVIDED PT WITH FRESH WATER ALSO. NO FURTHER NEEDS AT THIS TIME.
--- NOTE | 2018-11-24 14:51 | NUR ---
PT MOVED FROM BD 11 TO BED 21. CHART AND 5150 WERE BROUGHT TO OVERFLOW W PT.
--- NOTE | 2018-11-24 15:24 | NUR ---
PT IS UP TO BATHROOM, ASKED POLITELY.
--- NOTE | 2018-11-24 15:55 | NUR ---
RECEIVED MED LIST FROM [facility], GAVE TO PHARMACIST FOR MED REC TO BE COMPLETE.
[2018-11-24] MEDS ORDERED: TAMS0.4C32 PO (16:02)
[2018-11-24] MEDS ORDERED: OMEP20TA5 PO (16:02)
[2018-11-24] MEDS ORDERED: BACL10TA PO (16:04)
[2018-11-24] MEDS ORDERED: WARF-55 PO (16:05)
[2018-11-24] MEDS ORDERED: BUPR150T6 PO (16:06)
[2018-11-24] MEDS ORDERED: FERR325T32 PO (16:10)
--- NOTE | 2018-11-24 16:37 | NUR ---
PT IS SITTING QUIETLY IN BED
--- NOTE | 2018-11-24 17:37 | NUR ---
PT IS RESTING IN BED QUIETLY
[2018-11-24 18:25] LABS: INR 1.5 INR; PROTHROMBIN TIME 15.3 SECONDS (9.0-12.0)
--- NOTE | 2018-11-24 18:45 | NUR ---
PT ATE ALL OF HIS DINNER, IS NOW RESTING QUIETLY.
[2018-11-24] MEDS: risperiDONE 2mg tablet PO SCH (20:19)
[2018-11-24] MEDS: buPROPion 75mg tablet PO SCH (20:19)
--- NOTE | 2018-11-24 20:34 | NUR ---
pt was given pm meds. pt is sleeping now.
[2018-11-24] MEDS ORDERED: warfarin 5mg tablet PO SCH (21:00)
[2018-11-24] MEDS ORDERED: tamsulosin 0.4mg capsule PO SCH (21:00)
--- NOTE | 2018-11-24 21:59 | NUR ---
pt is sleeping, rr normal, unlabored
--- NOTE | 2018-11-25 00:11 | NUR ---
pt is sleeping on back.
--- NOTE | 2018-11-25 02:35 | NUR ---
pt is resting in bed, appears to be asleep.
--- NOTE | 2018-11-25 04:48 | NUR ---
pt is sleeping
--- NOTE | 2018-11-25 06:30 | NUR ---
Pt up, ambulated to the BR, returned to bed.
--- NOTE | 2018-11-25 07:05 | NUR ---
Lab is here drawing PT/INR.
[2018-11-25] MEDS ORDERED: pantoprazole 40mg Tablet.DR PO SCH (07:30)
[2018-11-25 07:34] LABS: INR 1.3 INR; PROTHROMBIN TIME 12.9 SECONDS (9.0-12.0)
[2018-11-25] MEDS ORDERED: PARoxetine 20mg tablet PO SCH (08:00)
[2018-11-25] MEDS ORDERED: non-formulary drug (Omeprazole 1 TAB) PO SCH (08:00)
[2018-11-25] MEDS ORDERED: buproprion 150mg XL (24-hour) tablet PO SCH (08:00)
--- NOTE | 2018-11-25 08:00 | NUR ---
Pt states he is still hearing voices, they are not telling him to do anything but do say that "they're going to kill me and crap...I'm tired of it." Pt admits to feeling "a little" depressed, denies SI. Pt also denies VH/HI.
[2018-11-25] MEDS: buPROPion 75mg tablet PO SCH (08:21)
--- NOTE | 2018-11-25 09:05 | NUR ---
Pt up to bathroom to wash up.
--- NOTE | 2018-11-25 11:05 | NUR ---
Pt resting quietly in bed.
--- NOTE | 2018-11-25 11:39 | NUR ---
Pt's rn case management came for a visit and left her card, placed in chart: Sanam Sparrow from [employer] [phone], cell: [phone].
--- NOTE | 2018-11-25 13:39 | NUR ---
Pt eating his lunch.
--- NOTE | 2018-11-25 14:42 | NUR ---
Jayda from [facility] in [place] called with questions about the patient.
--- NOTE | 2018-11-25 15:09 | NUR ---
Pt is being discharged to [facility], bean picker machine operator time is 1530.
--- NOTE | 2018-11-25 16:05 | NUR ---
Grayson jefferson in [facility] - 11/25/18 at 1608 by WILLIAM Pt transferred to [facility]
--- NOTE | 2018-11-25 16:05 | NUR ---
Pt transferred to [facility], picked up by regional intermodal truck driver, all belongings sent with the patient. Pt requested that telephonic nurse case manager Sanam and mom be notified, left messages.
[2018-11-25 16:10] VITALS: BP 112/77
--- NOTE | 2018-11-25 16:24 | NUR ---
manager of security returned call, was notified of discharge.
== END 2018-11-25 16:05 ==
LOC: ER 10:19
DX: R45.851 Suicidal ideations (principal); F29 Unspecified psychosis not due to a substance or known physiological condition; G89.29 Other chronic pain; Z86.73 Personal history of transient ischemic attack (TIA), and cerebral infarction without residual deficits; Z88.6 Allergy status to analgesic agent
CPT/HCPCS: 36415; 80053; 80305; 80320; 81003; 84443; 85025; 85610; 99285

== ENCOUNTER 2019-07-09 08:37 | Emergency (ER) | payer MEDICARE, MEDICAID ==
[~2019-07-09] VITALS: Ht 180.3 cm; Wt 80.5 kg
[~2019-07-09 08:37] MED LIST changes: +BACL10TA PO; +BUPR150T6 PO; -CLON0.5T12 PO; -FER325T PO; +FERR325T32 PO; -HYDR-4383 PO; -LACT1CAP26 PO; -LURA120T PO; -LURA40TA3 PO; +OMEP20TA5 PO; -PANT40TA4 PO; -PARO20TA6 PO; +WARF-55 PO; -ZOLP10TA PO
[2019-07-09 10:10] LABS: BASOPHILS % (AUTO) 0.1 % (0-1); EOSINOPHILS % (AUTO) 0 % (0-6); HEMATOCRIT 45.6 % (42.0-52.0); HEMOGLOBIN 15.9 g/dl (14.0-17.9); LYMPHOCYTES # (AUTO) 0.6 X10'3 (1.1-4.8); LYMPHOCYTES % (AUTO) 3.4 % (21-51); MEAN CORPUSCULAR HEMOGLOBIN 31.3 PG (27.0-31.0); MEAN CORPUSCULAR HGB CONC 34.9 g/dL (33.0-36.5); MEAN CORPUSCULAR VOLUME 89.8 FL (78-98); MEAN PLATELET VOLUME 9.9 FL (7.4-10.4); MONOCYTES # (AUTO) 1.8 X10'3 (0-0.9); MONOCYTES % (AUTO) 9.5 % (2-12); NEUTROPHILS # (AUTO) 16.1 X10'3 (1.8-7.7); PLATELET COUNT 196 X10'3 (140-440); RED BLOOD COUNT 5.08 X10'6 (4.70-6.10); WHITE BLOOD COUNT 18.5 X10'3 (4.5-11.0)
[2019-07-09 10:12] LABS: ALANINE AMINOTRANSFERASE 27 U/L (12-78); ALBUMIN 3.6 G/DL (3.4-5.0); ALBUMIN/GLOBULIN RATIO 0.9 (1.1-1.5); ALKALINE PHOSPHATASE 72 IU/L (46-116); ANION GAP 11 (8-16); ASPARTATE AMINO TRANSFERASE 23 U/L (10-37); BLOOD UREA NITROGEN 13 MG/DL (7-18); BUN/CREATININE RATIO 10.2 (5.4-32.0); CALCIUM 8.7 MG/DL (8.5-10.1); CHLORIDE 103 MMOL/L (99-107); CREATININE 1.28 MG/DL (0.60-1.10); GLUCOSE 140 MG/DL (70-104); LIPASE 53 U/L (73-393); POTASSIUM 4.2 MMOL/L (3.5-5.1); SODIUM 140 MMOL/L (135-145); TOTAL CARBON DIOXIDE 25.7 MMOL/L (24-32); TOTAL PROTEIN 7.5 G/DL (6.4-8.2); eGFR 58 ML/MIN
[2019-07-09 10:37] LABS: CLARITY,URINE CLEAR (Clear); COLOR,URINE YELLOW (Yellow); GLUCOSE, URINE NEGATIVE (Neg); KETONES,URINE NEGATIVE (Neg); LEUKOCYTE ESTERASE ,URINE NEGATIVE (Neg); NITRITES, URINE NEGATIVE (Neg); OCCULT BLOOD,URINE NEGATIVE (Neg); PROTEIN,URINE TRACE mg/dl (Neg)
[2019-07-09 10:46] LABS: UA COLLECTION TYPE NON-SPECIFIED
[2019-07-09 11:02] LABS: HYALINE CASTS 0-3 /LPF (NEGATIVE); MUCUS STRANDS MANY /LPF (Neg); SQUAMOUS EPITHELIAL CELL,UR FEW /LPF (FEW)
[2019-07-09 11:05] LABS: BACTERIA,URINE FEW /HPF (Neg); RBC,URINE 0-2 /HPF (0-2); WBC,URINE 0-4 /HPF (0-4)
[2019-07-09] MEDS ORDERED: ondansetron/PF 4mg/2ml inj IV ONE (11:10)
[2019-07-09] MEDS ORDERED: normal saline 1000ml 1,000 ML IV ONE (11:10)
[2019-07-09] MEDS ORDERED: morphine 2 MG/ML inj. syringe IV ONE (11:10)
[2019-07-09] MEDS ORDERED: CIPR-259 PO (11:21)
[2019-07-09] MEDS ORDERED: METR500T PO (11:21)
[2019-07-09] MEDS ORDERED: HYDR-4383 PO (11:22)
[2019-07-09 11:49] VITALS: BP 103/77
== END 2019-07-09 12:13 | disposition home or self-care (01) ==
LOC: ER 08:38
DX: K81.0 Acute cholecystitis (principal); M24.542 Contracture, left hand; M54.2 Cervicalgia; G89.29 Other chronic pain; F29 Unspecified psychosis not due to a substance or known physiological condition; Z86.73 Personal history of transient ischemic attack (TIA), and cerebral infarction without residual deficits; Z98.890 Other specified postprocedural states; Z88.6 Allergy status to analgesic agent; Z79.2 Long term (current) use of antibiotics; Z79.899 Other long term (current) drug therapy; Z79.01 Long term (current) use of anticoagulants
CPT/HCPCS: 36415; 74176; 80053; 81001; 83605; 83690; 85025; 96374; 99284; J2270; J2405; J7030

== ENCOUNTER 2022-12-25 03:16 | Inpatient (IN) | payer MEDICARE, MEDICAID ==
[~2022-12-25] VITALS: Ht 180.3 cm; Wt 84.5 kg
[~2022-12-25 03:16] MED LIST changes: +BUPR-317 PO; -BUPR150T6 PO; +HYDR-4383 PO; +OMEP20TA43 PO; -OMEP20TA5 PO
--- NOTE | 2022-12-25 04:59 | NUR ---
Not able to do some of these charting icons that are due because pt is not suicidal, he is having hallucinations in that he believes someone is out to harm him.
[2022-12-25 05:54] LABS: HEMOGLOBIN 16.5 g/dl (14.0-17.9)
[2022-12-25 05:55] LABS: BASOPHILS # (AUTO) 0.1 X10'3 (0-0.2); BASOPHILS % (AUTO) 0.6 % (0-1); EOSINOPHILS % (AUTO) 0.1 % (0-6); HEMATOCRIT 48.4 % (42.0-52.0); LYMPHOCYTES # (AUTO) 0.8 X10'3 (1.1-4.8); LYMPHOCYTES % (AUTO) 8.7 % (21-51); MEAN CORPUSCULAR HEMOGLOBIN 29.9 PG (27.0-31.0); MEAN CORPUSCULAR HGB CONC 34.1 g/dL (33.0-36.5); MEAN CORPUSCULAR VOLUME 87.8 FL (78-98); MEAN PLATELET VOLUME 10.4 FL (7.4-10.4); MONOCYTES # (AUTO) 0.7 X10'3 (0-0.9); MONOCYTES % (AUTO) 7.7 % (2-12); NEUTROPHILS # (AUTO) 7.9 X10'3 (1.8-7.7); NEUTROPHILS % (AUTO) 82.9 % (42-75); PLATELET COUNT 180 X10'3 (140-440); RED BLOOD COUNT 5.52 X10'6 (4.70-6.10); RED CELL DISTRIBUTION WIDTH 14.4 % (11.5-14.5); WHITE BLOOD COUNT 9.6 X10'3 (4.5-11.0)
[2022-12-25 06:03] LABS: ALANINE AMINOTRANSFERASE 30 U/L (12-78); ALBUMIN 4.1 G/DL (3.4-5.0); ALBUMIN/GLOBULIN RATIO 1.2 (1.1-1.5); ALKALINE PHOSPHATASE 70 IU/L (46-116); ANION GAP 12 (8-16); ASPARTATE AMINO TRANSFERASE 30 U/L (10-37); BILIRUBIN,TOTAL 0.8 MG/DL (0.1-1.0); BLOOD UREA NITROGEN 19 MG/DL (7-18); BUN/CREATININE RATIO 15.8 (5.4-32.0); CALCIUM 8.9 MG/DL (8.5-10.1); CHLORIDE 106 MMOL/L (99-107); GLUCOSE 116 MG/DL (70-104); POTASSIUM 4.2 MMOL/L (3.5-5.1); SODIUM 140 MMOL/L (135-145); TOTAL CARBON DIOXIDE 22.5 MMOL/L (24-32); TOTAL PROTEIN 7.5 G/DL (6.4-8.2); eGFR 61 ML/MIN
[2022-12-25 06:21] LABS: ETHANOL < 0.010 GM/DL (0.0-0.010)
--- NOTE | 2022-12-25 07:00 | NUR ---
tech moved pt from room 14 to room 24 in ER overflow.
--- NOTE | 2022-12-25 07:26 | NUR ---
tech inventoried pt belongings, pt had 3 bags, a home bag and 2 bags of his clothes he wore into the facility. Tech inventoried bags, valuables including pt wallet, cards and keys were sent to registration safe. Medications found in pt bags were sent to pharmacy, pt belongings placed in locker 24.
[2022-12-25] MEDS ORDERED: OLAN2.5T3 PO (07:35)
--- NOTE | 2022-12-25 07:50 | NUR ---
Patient sitting up in bed with eyes closed. Patient will scream out a phrase that does not make sense. Patient refusing to drink water. Patient is acting bizarre. Continue to monitor.
--- NOTE | 2022-12-25 09:11 | NUR ---
Patient refusing to eat his breakfast. Patient also refusing to drink. RN asked why patient won't eat or drink. Patient states "because of the voice." RN asked patient if he was hearing voices but patient would not respond to RN. Patient appears to be psychotic. Continue to monitor.
--- NOTE | 2022-12-25 10:10 | NUR ---
[facility] RN spoke to the M.A. of Zeeshan Magallanes. M.A. stated patient has HX of biplar disorder with psychotic features and possibly Schizophrenia. Patient had a stroke and has some paralysis on right side. Patient's right hand is contracted. M.A. stated patient always comes alone when he goes to the clinic. RN also clarified patient's medications. Patient was taking warfarin due to the stroke but often missed his appointment for INR and hasn't been back at the office since October. Dr. Munguia did not feel comfortable placing patient back on Warfarin since he does not follow up as prescribed and has a propensity to fall due to the right sided paralysis. Dr. Munguia decided to place patient on Plavix since he is allergic to asprin.
--- NOTE | 2022-12-25 10:55 | NUR ---
RN spoke to Dr Munguia about patient. Dr. Munguia ordered patient 10 mg Zyprexa X1 and increase nightly dose to 10 mg.
[2022-12-25] MEDS ORDERED: OLANZapine 5mg rapidly disint. tablet PO ONE ×2 (11:15→21:00)
--- NOTE | 2022-12-25 13:16 | NUR ---
Pt. given urinal early this shift in hopes to obtain a UA. Nurse asssited pt. in the restroom to help obtain urine but was unsuccessful, pt. was unable to void and had to be straight cath'd. Pt tolerated well and 22ml of nurys clear colored urine obtained.
[2022-12-25 14:29] LABS: CLARITY,URINE SLIGHTLY CLOUDY (Clear); COLOR,URINE YELLOW (Yellow); GLUCOSE, URINE NEGATIVE (Neg); KETONES,URINE 15 mg/dl (Neg); LEUKOCYTE ESTERASE ,URINE NEGATIVE (Neg); NITRITES, URINE NEGATIVE (Neg); OCCULT BLOOD,URINE TRACE-INTACT (Neg); PH,URINE 5.5 (4.8-8.0); PROTEIN,URINE NEGATIVE (Neg); UROBILINOGEN,URINE 0.2 E.U/dL (0.2-1.0)
[2022-12-25 14:30] LABS: UA COLLECTION TYPE VOIDED
[2022-12-25 14:31] LABS: SQUAMOUS EPITHELIAL CELL,UR FEW /LPF (FEW)
[2022-12-25 14:32] LABS: BACTERIA,URINE FEW /HPF (Neg); RBC,URINE 0-2 /HPF (0-2); WBC,URINE 0-4 /HPF (0-4)
--- NOTE | 2022-12-25 14:55 | NUR ---
Patient sleeping. No distress observed. Continue to monitor.
[2022-12-25 15:10] LABS: URINE AMPHETAMINE SCREEN NEGATIVE (Neg); URINE BARBITUATE SCREEN NEGATIVE (Neg); URINE BENZODIAZEPINES SCREEN NEGATIVE (Neg); URINE CANNABINOID SCREEN NEGATIVE (Neg); URINE COCAINE SCREEN NEGATIVE (Neg); URINE METHADONE SCREEN NEGATIVE (Neg); URINE OPIATE SCREEN NEGATIVE (Neg); URINE PHENCYCLIDINE SCREEN NEGATIVE (Neg)
[2022-12-25] MEDS ORDERED: clopidogrel 75mg tablet PO ONE (17:49)
--- NOTE | 2022-12-25 18:30 | NUR ---
Patient up walking around, confused. Said he's waiting for his ride. Reoriented him that he was going to stay the night with us. Will continue to monitor.
--- NOTE | 2022-12-25 19:02 | NUR ---
Patients Mother: Raeann Lawson
--- NOTE | 2022-12-25 21:00 | NUR ---
Patient awake and talking to himself in bed. Approached patient for conversation. Noted to be very disorganized and tangential speech. Reassured him in him confused state that he was safe and reoriented him to where he was and why he was here. Is pleasant and redirectable. Will continue to monitor.
--- NOTE | 2022-12-25 23:30 | NUR ---
Sleeping, RR even/nonlabored. No s/sx of distress noted. Will continue to monitor.
--- NOTE | 2022-12-26 01:18 | NUR ---
Patient sleeping. Appears to be comfortable. No s/sx of distress noted. Will continue to monitor.
[2022-12-26] MEDS ORDERED: LORazepam 2 mg/ml vial IM STA (02:14)
--- NOTE | 2022-12-26 02:30 | NUR ---
Patient awake and confused asking to go outside. Used distraction, unsuccessful attempt. Continued to chat with patient, reassuring him that he was safe. Reports, "I need to get my things from under the bed and go." This nurse assured patient that his belongings are safe and put away in a locked closet. Explained that he is on a hold and he will be sleeping here tonight. Patient began to cuss and demand to leave. Received orders for Ativan 2 mg IM x 1 and administered for anxiety/agitation. Will continue to monitor.
[2022-12-26] MEDS ORDERED: ziprasidone IM 20mg inj **IM only IM ONE (03:50)
--- NOTE | 2022-12-26 04:00 | NUR ---
Antonio LARSEN received orders from for Geodon 20 mg IM x 1 due to patient becoming more agitated and wanting to leave. Attempted verbal de-escalation without success. Patient continued to be anxious and Geodon 20 mg IM given x 1 dose. Patient resting with eyes closed. Appears to be sleeping. RR even/nonlabored. No s/sx of distress noted. Will continue to monitor.
--- NOTE | 2022-12-26 04:23 | NUR ---
Patient c/o Nausea/Vomiting as side effect from Geodon. Received orders for Zofran 8 mg ODT stat.
[2022-12-26] MEDS ORDERED: ondansetron 4mg rapidly disintigrating tab PO ONE (04:25)
[2022-12-26] MEDS ORDERED: OLAN2.5T28 PO (04:56)
--- NOTE | 2022-12-26 05:46 | NUR ---
Patient appears to be sleeping comfortably, RR even/nonlabored. No s/sx of distress noted. Will continue to monitor.
--- NOTE | 2022-12-26 06:55 | NUR ---
Patient appears to be sleeping. No distress observed. Continue to monitor.
--- NOTE | 2022-12-26 08:17 | NUR ---
Patient eating breakfast. No distress observed. Continue to monitor.
[2022-12-26] MEDS: clopidogrel 75mg tablet PO SCH (08:57)
[2022-12-26] MEDS ORDERED: magnesium hydroxide 30ml (MOM) UD suspension PO PRN (12:10)
[2022-12-26] MEDS ORDERED: mag hydrox/Alum hydrox/simeth 30ml oral suspension PO PRN (12:10)
[2022-12-26] MEDS ORDERED: acetaminophen 325mg tablet PO PRN (12:10)
[2022-12-26] MEDS ORDERED: loperamide 2mg capsule PO PRN (12:10)
[2022-12-26] MEDS ORDERED: TRIA80OI TOP (12:23)
--- NOTE | 2022-12-26 12:25 | NUR ---
Admit note: Pt admitted today to [facility] on a 5150 for gravely disabled at 1133 . Neighbors called about pt walking around with a knife. Pt stated someone had a gun and wanted to kill him and was "Here somewhere". Pt responding to internal stimuli, disoriented and unable to meet basic needs. Pt has history of CVA, Depression, schizophrenia, Bipolar.
--- NOTE | 2022-12-26 13:55 | NUR ---
At 1340 patient was walking in his room. he states that he lost his balance and fell. Patient apparently landed on his left side, which is his affected side from a prior stroke. He denies hitting his head, saying he mostly landed on his left arm. Patient never lost consciousness. Vital signs:B/P 113/90, T. 98.4, O2 96%, Pulse 90, Resp.16. Pain is 8/10. Per Dr. Rojas, order entered for [place] 5325 Q4 hr. PRN.
[2022-12-26] MEDS: HYDROcodone/acetaminophen 5mg/325mg tablet PO PRN ×2 (14:09→18:32)
--- NOTE | 2022-12-26 14:11 | NUR ---
Patient placed on LOS per Dr. Rojas. Plating Technician aware.
--- NOTE | 2022-12-26 16:30 | NUR ---
Patient has been sleeping for the last couple hours.
[2022-12-26 19:50] VITALS: BP 116/73
[2022-12-26] MEDS: tamsulosin 0.4mg capsule PO SCH (20:03)
[2022-12-26] MEDS: OLANZapine 2.5MG tablet PO SCH (20:03)
--- NOTE | 2022-12-27 02:55 | NUR ---
Problem: [facility]150 for gravely disabled at 1133 . Neighbors called about pt walking around with a knife. Pt stated someone had a gun and wanted to kill him and was "Here somewhere". Pt responding to internal stimuli, disoriented and unable to meet basic needs. Pt has history of CVA, Depression, schizophrenia, Bipolar. Interventions : Introduced self and established rapport, maintained a safe and supportive environment, ensured contract for safety, provided clear and simple instructions, provided active listening and postive encouragement, monitored behaviors and need for intervention, and maintained Q 15min safety checks. Response: Patient is supine in bed post shift change. He awakens to voice. Patient is linear, speech is quiet. The patient is linear and exhibits understanding. Affect is flat, eye contact is poor. Patient does not provide an intericate interview at this time. Patient has some left side paralysis secondary to a stroke history. He ambulates to the toilet with the aid of a walker. A sitter is present in the room as this patient is a fall rise. The patient ate his dinner. He did not exit the room for snacks. He primarily isolates in his room and sleeps. Plan: Pt needs stabilization with medication adjustment and monitoring in a safe and therapeutic environment. Patient has a sitter at bedside to assist with ambulation and observation as needed. Patient is a fall risk with left sided deficits post CVA history.
[2022-12-27 07:06] VITALS: BP 109/71
[2022-12-27] MEDS: clopidogrel 75mg tablet PO SCH (07:20)
[2022-12-27] MEDS: HYDROcodone/acetaminophen 5mg/325mg tablet PO PRN ×2 (07:41→14:38)
[2022-12-27] MEDS: triamcinolone acet 0.1% cream 15gm TP SCH ×2 (08:00→20:00)
[2022-12-27] MEDS ORDERED: WARF-55 PO ×2 (12:20)
[2022-12-27] MEDS ORDERED: WARF-65 PO (12:20)
[2022-12-27 14:34] LABS: HEMOGLOBIN A1C 5.5 % (4.5-6.2)
[2022-12-27 14:38] LABS: CHOL/HDL RATIO 3.6 (0.00-4.99); CHOLESTEROL 187 MG/DL (0-200); HDL CHOLESTEROL 52 MG/DL (35-60); LDL CHOLESTEROL 108 MG/DL (50-100); TRIGLYCERIDES 156 MG/DL (20-135)
--- NOTE | 2022-12-27 17:14 | NUR ---
Nursing Progress Note: Problem: Pt admitted today (12/27/2022) to [facility] on a 5150 for gravely disabled at 1133 . Neighbors called about Pt walking around with a knife. Pt stated someone had a gun and wanted to kill him and was "Here somewhere". Pt responding to internal stimuli, disoriented and unable to meet basic needs. Pt has history of CVA, Depression, Schizophrenia, and Bipolar. Interventions: Introduced self and established rapport, maintained a safe and supportive environment, ensured contract for safety, provided clear and simple instructions, provided active listening and positive encouragement, monitored behaviors and need for intervention, and maintained Q 15min safety checks. Response: Patient ate breakfast with his peers. Hes compliant with medications, then stays in the community room watching TV. He remains on LOS due to a fall yesterday, soon after his admission. X-rays were performed to left elbow after the fall. Report is negative for fractures. There is however, signs of joint effusion or Hemarthrosis that may be looked at later. He continues to have flat affect and depressed appearance. Patient has hx of left-sided stroke that has weakened him. He uses a cane while ambulating. Patient remained in the community room watching TV shows afterwards. There is a sitter present with him. He has spent the majority among his peers watching TV. Plan: Pt needs stabilization with medication adjustment and monitoring in a safe and therapeutic environment. Patient has a sitter at bedside to assist with ambulation and observation as needed. Patient is a fall risk with left sided deficits post CVA history.
[2022-12-27 19:00] VITALS: BP 113/71
--- NOTE | 2022-12-27 19:18 | NUR ---
MEDICATION CLARIFICATION: Processing Manager clarified with pharmacist and SUZIE Alvarez clarified with doctor Bob; Warfarin (total of 7mg) to be given Thursday, Thursday, Thursday and Thursday. Dr. Rojas wants INR checked q5 days.
[2022-12-27] MEDS: warfarin 1mg tablet PO SCH (21:12)
[2022-12-27] MEDS: OLANZapine 2.5MG tablet PO SCH (21:12)
[2022-12-27] MEDS: tamsulosin 0.4mg capsule PO SCH (21:12)
[2022-12-27] MEDS: warfarin 5mg tablet PO SCH (21:13)
--- NOTE | 2022-12-28 03:19 | NUR ---
Nursing Progress Note: Problem: Pt admitted today (12/27/2022) to [facility] on a 5150 for gravely disabled at 1133 . Neighbors called about Pt walking around with a knife. Pt stated someone had a gun and wanted to kill him and was "Here somewhere". Pt responding to internal stimuli, disoriented and unable to meet basic needs. Pt has history of CVA, Depression, Schizophrenia, and Bipolar. Interventions: Introduced self and established rapport, maintained a safe and supportive environment, ensured contract for safety, provided clear and simple instructions, provided active listening and positive encouragement, monitored behaviors and need for intervention, and maintained Q 15min safety checks. Response: Patient is pleasant and cooperative with care; compliant with medication. He denies SI, HI, A/VH; no apparent delusions expressed. Patient remains LOS for safety. He is mostly self isolative but out of his room more than previous shift. He participated in HS snack and watched TV in community room prior to bed; observed sleeping and does not appear to be having difficulty. Plan: Pt needs stabilization with medication adjustment and monitoring in a safe and therapeutic environment. Patient has a sitter at bedside to assist with ambulation and observation as needed. Patient is a fall risk with left sided deficits post CVA history.
[2022-12-28] MEDS: HYDROcodone/acetaminophen 5mg/325mg tablet PO PRN (04:53)
[2022-12-28] MEDS: triamcinolone acet 0.1% cream 15gm TP SCH (08:00)
[2022-12-28 09:30] VITALS: BP 107/73
[2022-12-28] MEDS ORDERED: LORazepam 0.5 MG tablet PO STA (09:33)
[2022-12-28] MEDS ORDERED: OLANZapine 2.5MG tablet PO STA (09:34)
[2022-12-28] MEDS ORDERED: LORazepam 0.5 MG tablet PO PRN (13:00)
[2022-12-28] MEDS ORDERED: OLANZapine 2.5MG tablet PO PRN (13:00)
[2022-12-28] MEDS ORDERED: OLANZAPINE 5 MG TABLET PO PRN (13:10)
--- NOTE | 2022-12-28 16:41 | NUR ---
Nursing Progress Note: Problem: Pt admitted 12/27/2022 to [place] [facility] on a 5150 for gravely disabled. Neighbors called about Pt walking around with a knife. Pt stated someone had a gun and wanted to kill him and was "Here somewhere". Pt responding to internal stimuli, disoriented and unable to meet basic needs. Pt has history of CVA, Depression, Schizophrenia, and Bipolar. Interventions: Provide medication administration & medication management; Maintained a safe & supportive environment; Clear & simple instructions; Direction & encouragement regarding performance of ADLs; monitored behaviors & maintained clear boundaries; Patient physical assessment & 1:1 patient interview; Therapeutic conversation & active listening; Patient education & monitoring. Response: Received patient at 0630. Patient was awake, dressed and sitting in the Community Room at 0630. Patient has a sitter named DANIELLE Singh, sitting in the chair next to him who will be here another 12 hours. Patient is s/p Right CVA with noted paralysis on his left upper extremity and profound weakness noted in his left lower extremity. Patient was observed walking with a cane from room to room. Patient is on fall precautions. Patient is currently on Coumadin with varying doses at 2100 each night. Patient was Tox (-) does not know why he has Kenalog 0.1% ordered at this time. Medication was discontinued. Patient is A & O x2 and is sometimes slightly slow to respond. At approximately 0930, the patient was observed standing in the hallway with his sitter at his side, and stated I want to go home now. Patient also appeared anxious and slightly diaphoretic. Dr. Rojas was contacted by this Forklift Operator and requested something for anxiety for this patient. Per Dr. Rojas, he ordered Zyprexa 2.5mg po and Ativan 05mg po now, which were given at 0930. Patient laid down in the bed and received good relief from his anxiety and slept approximately 2.5 hours before lunch. Patient spent time watching TV in the Community Room as well as participating in snack time the rest of the day. Patient denies SI/AV/AH. Plan: Pt needs stabilization with medication adjustment and monitoring in a safe and therapeutic environment. Patient has a sitter at bedside to assist with ambulation and observation as needed. Patient is a fall risk with left sided deficits post CVA history.
[2022-12-28 20:00] VITALS: BP 96/56
[2022-12-28] MEDS: tamsulosin 0.4mg capsule PO SCH (20:26)
[2022-12-28] MEDS: warfarin 5mg tablet PO SCH (20:26)
[2022-12-28] MEDS: OLANZAPINE 5 MG TABLET PO SCH (20:30)
--- NOTE | 2022-12-28 23:39 | NUR ---
Incident: Patient received another patient's medication in error. Doctor Bob was notified; Patient received 900mg Gabapentin and Zyprexa 15mg. MD monreal to give Coumadin 5mg and Tamsulosin 0.4mg. Patient's VSS and he was placed on a 1:1.
--- NOTE | 2022-12-29 04:29 | NUR ---
Nursing Progress Note: Problem: Pt admitted today (12/27/2022) to [place] [facility] on a 5150 for gravely disabled at 1133. Neighbors called about Pt walking around with a knife. Pt stated someone had a gun and wanted to kill him and was "Here somewhere". Pt responding to internal stimuli, disoriented and unable to meet basic needs. Pt has history of CVA, Depression, Schizophrenia, and Bipolar. Interventions: Introduced self and established rapport, maintained a safe and supportive environment, ensured contract for safety, provided clear and simple instructions, provided active listening and positive encouragement, monitored behaviors and need for intervention, and maintained Q 15min safety checks. Response: Patient is pleasant and cooperative with care; compliant with medication. Patient was changed from LOS to 1:1 after med error was made (refer to previous note). Patient denies SI, HI, A/VH; no apparent delusions expressed. Patient participated in HS snack and briefly watched TV in the community room; observed sleeping and does not appear to be having difficulty. Plan: Pt needs stabilization with medication adjustment and monitoring in a safe and therapeutic environment. Patient has a sitter at bedside to assist with ambulation and observation as needed. Patient is a fall risk with left sided deficits post CVA history.
[2022-12-29 08:00] VITALS: BP 100/64
[2022-12-29] MEDS: OLANZapine 2.5MG tablet PO SCH (08:13)
--- NOTE | 2022-12-29 13:12 | NUR ---
[address] KELLI Vega
--- NOTE | 2022-12-29 14:45 | NUR ---
Pt. attended group today. We did an art expression exercise where they had to draw what was in their heart. They could express what they were feeling was in their heart through words, pictures or colors. They then completed a Sentence Completion sheet from their heart to encourage and support them. Pt. was guarded but did share his picture with this Drivematic Machine Operator, he did not wish to share with the group. He shared a picture where his heart was red and he had bomb in the middle of his heart. He reported that he can hear the tick tick and is just waiting for the bomb to go off. He wrote, "I am headed for a downfall" on his paper. Pt.'s demeanor was calm and compliant. His mood appeared depressive. He was alert and oriented X 4. His thought content appeared to contain possible delusional content and his thought process was linear. He participated well in the group, he understood the instructions and engaged appropriately in the group. Chika Brandon, TRISTA
--- NOTE | 2022-12-29 16:32 | NUR ---
Nursing Progress Note: Problem: Pt admitted 12/27/2022 to [facility] on a 5150 for gravely disabled. Neighbors called about Pt walking around with a knife. Pt stated someone had a gun and wanted to kill him and was "Here somewhere". Pt responding to internal stimuli, disoriented and unable to meet basic needs. Pt has history of CVA, Depression, Schizophrenia, and Bipolar. Interventions: Provide medication administration & medication management; Maintained a safe & supportive environment; Clear & simple instructions; Direction & encouragement regarding performance of ADLs; monitored behaviors & maintained clear boundaries; Patient physical assessment & 1:1 patient interview; Therapeutic conversation & active listening; Patient education & monitoring. Response: Received patient at 0630 who was awake and in the bathroom. Patient Interview and Assessment were completed. Patient continues to appear very guarded and paranoid. Patient took his 0800 Zyprexa without hesitation. Patient had LULI Lizama at his bedside all day as a sitter as patient is on fall precautions after taking a fall on Thursday night. Patients mom, who is 81 yo, came in at 1000 to visit with the patient. Patients mom informed the patient that she received a telephone call from his current Landlord of his apartment, which is paid for by [facility], and they will be evicting him from this property. Patient responded by calling his mother foul words and she did not engage in his harsh words from him, but instead left the room and requested to speak with this Chips Screen Tender. Patients mom gave me a copy of a letter that she wrote about the patient and the past 62 years that she has raised him. The letter was given to Dr. Ravi to review and he will place it in the patients chart for review. Patient was awake all day in the Community Room watching TV. Patient attended the Group Meeting today at 1130. Plan: Pt needs stabilization with medication adjustment and monitoring in a safe and therapeutic environment. Patient has a sitter at bedside to assist with ambulation and observation as needed. Patient is a fall risk with left sided deficits post CVA history.
[2022-12-29 19:00] VITALS: BP 111/61
[2022-12-29] MEDS: HYDROcodone/acetaminophen 5mg/325mg tablet PO PRN (20:50)
[2022-12-29] MEDS: OLANZAPINE 5 MG TABLET PO SCH (20:50)
[2022-12-29] MEDS: tamsulosin 0.4mg capsule PO SCH (20:50)
[2022-12-29] MEDS: warfarin 5mg tablet PO SCH (20:51)
[2022-12-29] MEDS: warfarin 1mg tablet PO SCH (20:51)
--- NOTE | 2022-12-30 02:50 | NUR ---
Nursing Progress Note: Problem: Pt admitted today (12/27/2022) to [facility] [facility] on a 5150 for gravely disabled at 1133. Neighbors called about Pt walking around with a knife. Pt stated someone had a gun and wanted to kill him and was "Here somewhere". Pt responding to internal stimuli, disoriented and unable to meet basic needs. Pt has history of CVA, Depression, Schizophrenia, and Bipolar. Interventions: Introduced self and established rapport, maintained a safe and supportive environment, ensured contract for safety, provided clear and simple instructions, provided active listening and positive encouragement, monitored behaviors and need for intervention, and maintained Q 15min safety checks. Response: Patient is pleasant and cooperative with care; compliant with medication. PRN [place] provided for c/o back pain. Patient remains 1:1 for safety. He denies SI, HI, A/VH; no apparent delusions expressed. Patient briefly out of his room and participated in HS snack prior to bed; observed sleeping and does not appear to be having difficulty. INR: 2.3 drawn on 12/29 Plan: Pt needs stabilization with medication adjustment and monitoring in a safe and therapeutic environment. Patient has a sitter at bedside to assist with ambulation and observation as needed. Patient is a fall risk with left sided deficits post CVA history.
[2022-12-30] MEDS: OLANZapine 2.5MG tablet PO SCH (07:53)
[2022-12-30 07:57] LABS: BASOPHILS # (AUTO) 0.1 X10'3 (0-0.2); BASOPHILS % (AUTO) 1.4 % (0-1); EOSINOPHILS # (AUTO) 0.4 X10'3 (0-0.9); EOSINOPHILS % (AUTO) 6.7 % (0-6); HEMATOCRIT 42.8 % (42.0-52.0); HEMOGLOBIN 14.8 g/dl (14.0-17.9); LYMPHOCYTES # (AUTO) 0.9 X10'3 (1.1-4.8); LYMPHOCYTES % (AUTO) 14.8 % (21-51); MEAN CORPUSCULAR HEMOGLOBIN 30.9 PG (27.0-31.0); MEAN CORPUSCULAR HGB CONC 34.5 g/dL (33.0-36.5); MEAN CORPUSCULAR VOLUME 89.6 FL (78-98); MONOCYTES # (AUTO) 0.6 X10'3 (0-0.9); MONOCYTES % (AUTO) 9.8 % (2-12); NEUTROPHILS # (AUTO) 4.1 X10'3 (1.8-7.7); NEUTROPHILS % (AUTO) 67.3 % (42-75); PLATELET COUNT 150 X10'3 (140-440); RED BLOOD COUNT 4.78 X10'6 (4.70-6.10); RED CELL DISTRIBUTION WIDTH 14.5 % (11.5-14.5); WHITE BLOOD COUNT 6.1 X10'3 (4.5-11.0)
[2022-12-30 08:00] VITALS: BP 101/64
--- NOTE | 2022-12-30 15:38 | NUR ---
Kanu's mother called and requested a conservatorship evaluation. Will apprise Dr Ravi. [facility]-# [phone] KELLI Vega
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
[2022-12-30 19:00] VITALS: BP 108/67
[2022-12-30] MEDS: OLANZAPINE 5 MG TABLET PO SCH (21:09)
[2022-12-30] MEDS: tamsulosin 0.4mg capsule PO SCH (21:09)
[2022-12-30] MEDS: HYDROcodone/acetaminophen 5mg/325mg tablet PO PRN (21:10)
[2022-12-30] MEDS: warfarin 5mg tablet PO SCH (21:11)
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
[2022-12-31 08:00] VITALS: BP 112/70
[2022-12-31] MEDS: OLANZapine 2.5MG tablet PO SCH (08:00)
[2022-12-31 09:19] LABS: BASOPHILS # (AUTO) 0.1 X10'3 (0-0.2); BASOPHILS % (AUTO) 1.2 % (0-1); EOSINOPHILS # (AUTO) 0.2 X10'3 (0-0.9); EOSINOPHILS % (AUTO) 3.5 % (0-6); HEMATOCRIT 42.8 % (42.0-52.0); HEMOGLOBIN 14.7 g/dl (14.0-17.9); LYMPHOCYTES # (AUTO) 0.6 X10'3 (1.1-4.8); LYMPHOCYTES % (AUTO) 10.3 % (21-51); MEAN CORPUSCULAR HEMOGLOBIN 30.1 PG (27.0-31.0); MEAN CORPUSCULAR HGB CONC 34.2 g/dL (33.0-36.5); MEAN PLATELET VOLUME 9.9 FL (7.4-10.4); MONOCYTES # (AUTO) 0.3 X10'3 (0-0.9); MONOCYTES % (AUTO) 5.2 % (2-12); NEUTROPHILS % (AUTO) 79.8 % (42-75); PLATELET COUNT 157 X10'3 (140-440); RED BLOOD COUNT 4.86 X10'6 (4.70-6.10); RED CELL DISTRIBUTION WIDTH 14.6 % (11.5-14.5); WHITE BLOOD COUNT 6.2 X10'3 (4.5-11.0)
--- NOTE | 2022-12-31 11:47 | NUR ---
Initial: Pt admit DX psychosis, mood d/o, and elbow fx per EMR. PO 100% initial regular/SB6 diet meeting estimated needs. LBM 12/28 per EMR. No nutrition intervention at this time. Will continue to follow. Rec: 1. continue regular/SB6 diet 2. bowel care per rx 3. weekly wt Addendum: 12/31/22 at [address] Amended: Links added.
--- NOTE | 2022-12-31 14:32 | NUR ---
LPS REFERRAL Sent LPS referral to [facility]. KELLI Vega
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
[2022-12-31 20:00] VITALS: BP 105/71
[2022-12-31] MEDS: tamsulosin 0.4mg capsule PO SCH (22:00)
[2022-12-31] MEDS: OLANZAPINE 5 MG TABLET PO SCH (22:00)
[2022-12-31] MEDS: warfarin 5mg tablet PO SCH (22:01)
[2022-12-31] MEDS: warfarin 1mg tablet PO SCH (22:02)
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
[2023-01-01 08:00] VITALS: BP 106/71
[2023-01-01] MEDS: OLANZapine 2.5MG tablet PO SCH (08:10)
[2023-01-01] MEDS: acetaminophen 325mg tablet PO PRN (08:12)
--- NOTE | 2023-01-01 10:05 | NUR ---
Pt sent down to CT in w/c accompanied by progressive care manager.
--- NOTE | 2023-01-01 10:22 | NUR ---
Pt is back on the unit.
--- NOTE | 2023-01-01 11:50 | NUR ---
LPS evaluation referral was declined by [facility] Clinical [facility] [place], Darlene. KELLI Vega
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
[2023-01-01 20:00] VITALS: BP 110/66
[2023-01-01] MEDS ORDERED: warfarin 3mg tablet PO ONE (21:00)
[2023-01-01] MEDS: OLANZAPINE 5 MG TABLET PO SCH (21:48)
[2023-01-01] MEDS: tamsulosin 0.4mg capsule PO SCH (21:48)
[2023-01-02 08:00] VITALS: BP 108/67
[2023-01-02] MEDS: OLANZapine 2.5MG tablet PO SCH (08:03)
[2023-01-02] MEDS: acetaminophen 325mg tablet PO PRN (08:05)
--- NOTE | 2023-01-02 10:42 | NUR ---
Ortho consult note: Dr Torres requested ortho consult. Called Dr Hermosillo and gave information regarding L elbow fracture. orders orthodontic technician to place long arm splint and follow up with Dr Hermosillo after discharge.
--- NOTE | 2023-01-02 15:35 | NUR ---
Called [facility] (ph# [phone]) to schedule follow up with Dr Hermosillo. They will call patient to schedule follow up. Requested they call press writer as well to inform of appt time and date. KELLI Vega
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
[2023-01-02 19:00] VITALS: BP 102/60
[2023-01-02] MEDS: tamsulosin 0.4mg capsule PO SCH (20:40)
[2023-01-02] MEDS: OLANZAPINE 5 MG TABLET PO SCH (20:40)
[2023-01-02] MEDS ORDERED: warfarin 7.5mg tablet PO ONE (21:00)
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
[2023-01-03] MEDS: OLANZapine 2.5MG tablet PO SCH (07:32)
[2023-01-03] MEDS: acetaminophen 325mg tablet PO PRN (07:33)
[2023-01-03 08:52] VITALS: BP 98/60
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
[2023-01-03 20:13] VITALS: BP 120/64
[2023-01-03] MEDS: HYDROcodone/acetaminophen 5mg/325mg tablet PO PRN (20:26)
[2023-01-03] MEDS: OLANZAPINE 5 MG TABLET PO SCH (20:26)
[2023-01-03] MEDS: tamsulosin 0.4mg capsule PO SCH (20:26)
[2023-01-03] MEDS ORDERED: warfarin 7.5mg tablet PO ONE (21:00)
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
[2023-01-04] MEDS: OLANZapine 2.5MG tablet PO SCH (07:33)
[2023-01-04 08:00] VITALS: BP 105/55
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
[2023-01-04 20:00] VITALS: BP 118/72
[2023-01-04] MEDS ORDERED: warfarin 3mg tablet PO ONE (21:00)
[2023-01-04] MEDS: tamsulosin 0.4mg capsule PO SCH (21:15)
[2023-01-04] MEDS: OLANZAPINE 5 MG TABLET PO SCH (21:16)
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
[2023-01-05] MEDS: OLANZAPINE 5 MG TABLET PO SCH ×2 (07:57→20:32)
[2023-01-05 08:00] VITALS: BP 110/74
--- NOTE | 2023-01-05 08:46 | NUR ---
[facility] called to report that Dr Hermosillo reviewed Kanu' records and he just needs to follow up with his primary as there is no fracture. KELLI Vega
--- NOTE | 2023-01-05 09:54 | NUR ---
[facility] REFERRAL [facility] requested a [facility] referral due to LPS request. Completed and sent [facility] referral. KELLI Vega
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
[2023-01-05 19:58] VITALS: BP 125/74
[2023-01-05] MEDS: tamsulosin 0.4mg capsule PO SCH (20:32)
[2023-01-05] MEDS ORDERED: warfarin 5mg tablet PO ONE (21:00)
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
[2023-01-06] MEDS: OLANZAPINE 5 MG TABLET PO SCH ×2 (07:21→20:47)
[2023-01-06 08:00] VITALS: BP 119/70
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
[2023-01-06 19:41] VITALS: BP 98/63
[2023-01-06] MEDS: tamsulosin 0.4mg capsule PO SCH (20:47)
[2023-01-06] MEDS ORDERED: warfarin 3mg tablet PO ONE (21:00)
--- NOTE | 2023-01-06 21:10 | NUR ---
Nursing Progress Note: Problem: Pt admitted today (12/27/2022) to [facility] a 5150 for gravely disabled at 1133. Neighbors called about Pt walking around with a knife. Pt stated someone had a gun and wanted to kill him and was "Here somewhere". Pt responding to internal stimuli, disoriented and unable to meet basic needs. Pt has history of CVA, Depression, Schizophrenia, and Bipolar. Interventions: Provide medication administration & medication management; Maintained a safe & supportive environment; Clear & simple instructions; Direction & encouragement regarding performance of ADLs; monitored behaviors & maintained clear boundaries; Patient physical assessment & 1:1 patient interview; Therapeutic conversation & active listening; Patient education & monitoring. Response: Pt was in his room at change of shift sleeping. Pt denies s/i, h/i. Pt is short with his answers and states I'm fine I just need to get some sleep. Pt took HS meds and went back to sleep. Plan: Pt needs stabilization with medication adjustment and monitoring in a safe and therapeutic environment. Patients application has been sent to [facility].
[2023-01-07 07:31] VITALS: BP 101/61
[2023-01-07] MEDS: OLANZAPINE 5 MG TABLET PO SCH ×2 (07:57→20:18)
--- NOTE | 2023-01-07 17:08 | NUR ---
Nursing Progress Note: Kanu Problem: Pt admitted on a 5150 for GD. Neighbors called about Pt walking around with a knife. Pt stated someone had a gun and wanted to kill him and was "Here somewhere". Pt responding to internal stimuli, disoriented and unable to meet basic needs. Pt has history of CVA, Depression, Schizophrenia, and Bipolar. Interventions: Medication administration, 1:1 MH assessment, maintained a safe and supportive environment, provided clear and simple instructions, provided encouragement regarding performance of ADLs, monitored behaviors and maintained clear boundaries, maintained Q15 minute safety checks. Response: Pt received asleep and awoke for breakfast. Pt. took his medication without hesitation, denies SI, HI, AH, VH, and reports his DC plan is to return to his apartment in [place]. Pt. presents as irritable, and states Im ready to get out of here He reports my depression is a little better and did attend group this morning. Pt. ate all meals in the community room with cohorts, but doesnt engage socially. He uses a cane to ambulate around the unit and spent most of the shift watching tv. Pt. requested to shave and was provided with 1:1 supervision. Pt. has good hygiene, well groomed. And wears street clothes. Plan: Pt needs stabilization with medication adjustment and monitoring in a safe and therapeutic environment.
[2023-01-07 19:00] VITALS: BP 97/55
[2023-01-07] MEDS: tamsulosin 0.4mg capsule PO SCH (20:19)
[2023-01-07] MEDS ORDERED: warfarin 7.5mg tablet PO ONE (21:00)
--- NOTE | 2023-01-08 04:08 | NUR ---
Nursing Progress Note: Problem: Pt admitted on a 5150 for GD. Neighbors called about Pt walking around with a knife. Pt stated someone had a gun and wanted to kill him and was "Here somewhere". Pt responding to internal stimuli, disoriented and unable to meet basic needs. Pt has history of CVA, Depression, Schizophrenia, and Bipolar. Interventions: Medication administration, 1:1 MH assessment, maintained a safe and supportive environment, provided clear and simple instructions, provided encouragement regarding performance of ADLs, monitored behaviors and maintained clear boundaries, maintained Q15 minute safety checks. Response: Patient is irritable but cooperative with care; compliant with medication. He denies SI, HI, A/VH; no apparent delusions expressed. Patient is guarded and responds minimally and isolated to his room. Patient refused to participate in HS snack prior to bed; observed sleeping and does not appear to be having difficulty. Plan: Pt needs stabilization with medication adjustment and monitoring in a safe and therapeutic environment.
[2023-01-08 07:27] VITALS: BP 118/70
[2023-01-08] MEDS: OLANZAPINE 5 MG TABLET PO SCH ×2 (07:44→20:36)
--- NOTE | 2023-01-08 07:52 | NUR ---
F/u 01/08: Pt PO mostly 100% avg regular/SB6 diet w/ snacks meeting estimated needs. LBM 01/07 per EMR. No nutrition intervention at this time. Will continue to follow. Rec: 1. continue regular/SB6 diet 2. bowel care per rx 3. weekly wt Addendum: 01/08/23 at [address] Amended: Links added.
--- NOTE | 2023-01-08 16:33 | NUR ---
Nursing Progress Note: Kanu Problem: Pt admitted on a 5150 for GD. Neighbors called about Pt walking around with a knife. Pt stated someone had a gun and wanted to kill him and was "Here somewhere". Pt responding to internal stimuli, disoriented and unable to meet basic needs. Pt has history of CVA, Depression, Schizophrenia, and Bipolar. Interventions: Medication administration, 1:1 MH assessment, maintained a safe and supportive environment, provided clear and simple instructions, provided encouragement regarding performance of ADLs, monitored behaviors and maintained clear boundaries, maintained Q15 minute safety checks. Response: Pt received asleep and awoke for his medications. He denies SI, HI, AH, VH, his DC plan remains unchanged, with a plan to return to [place]. Pt. presents as cooperative, but irritable stating Im ready to get out of here He c/o poor slap and multiple trips to the bathroom. He denies dysuria or a Hx of prostate problems. He ate all meals in the community room with cohorts and was observed socializing with cohorts at his table. He spent most of the shift watching tv in the community room, making phone calls and ambulating around the unit with a cane. Pt. appears to have good hygiene, well groomed, and wears both scrubs and street clothes. Pt. continues on Coumadin and his PT/INR is monitored. Plan: Pt needs stabilization with medication adjustment and monitoring in a safe and therapeutic environment.
[2023-01-08 20:00] VITALS: BP 100/87
[2023-01-08] MEDS: tamsulosin 0.4mg capsule PO SCH (20:36)
[2023-01-08] MEDS ORDERED: warfarin 7.5mg tablet PO ONE (21:00)
--- NOTE | 2023-01-09 00:17 | NUR ---
Nursing Progress Note: Kanu Problem: Pt admitted on a 5150 for GD. Neighbors called about Pt walking around with a knife. Pt stated someone had a gun and wanted to kill him and was "Here somewhere". Pt responding to internal stimuli, disoriented and unable to meet basic needs. Pt has history of CVA, Depression, Schizophrenia, and Bipolar. Interventions: Medication administration, 1:1 MH assessment, maintained a safe and supportive environment, provided clear and simple instructions, provided encouragement regarding performance of ADLs, monitored behaviors and maintained clear boundaries, maintained Q15 minute safety checks. Response: Pt received lying in his bed resting. He was slightly agitated as he thought he was discharging today. He denies SI, HI, AH, VH, his DC plan remains unchanged, with a plan to return to [place]. He c/o mild depression and anxiety as he is ready to leave this place. Patient took all HS medications without issue and stated he wants to try to get some good sleep tonight. Pt. continues on Coumadin and his PT/INR is monitored. Plan: Pt needs stabilization with medication adjustment and monitoring in a safe and therapeutic environment.
[2023-01-09] MEDS: OLANZAPINE 5 MG TABLET PO SCH ×2 (07:56→20:19)
[2023-01-09] MEDS: acetaminophen 325mg tablet PO PRN (07:58)
[2023-01-09 08:00] VITALS: BP 106/75
--- NOTE | 2023-01-09 13:42 | NUR ---
DISCHARGE PLAN Kanu is returning to his apartment in [place]. Spoke to automotive general manager, Charo Carneyum (ph# [phone]) and informed him that he is discharging tomorrow. She thanked advertising copywriter for the heads up. Kanu has follow up scheduled at [facility]. [facility] residential driver will transport him home tomorrow at 10 AM. KELLI Vega
--- NOTE | 2023-01-09 14:01 | NUR ---
Nursing Progress Note: Problem: Pt admitted today (12/27/2022) to [facility] on a 5150 for gravely disabled at 1133. Neighbors called about Pt walking around with a knife. Pt stated someone had a gun and wanted to kill him and was "Here somewhere". Pt responding to internal stimuli, disoriented and unable to meet basic needs. Pt has history of CVA, Depression, Schizophrenia, and Bipolar. Interventions: 1:1 assessment, therapeutic conversation, active listening, ensured contract for safety, medication administration/education/monitoring, fall prevention, pain management, and maintained Q15 min safety checks. Response: Pt was up before breakfast watching TV in the dining room. Pt was cooperative with his Zyprexa though did state that he would prefer to take it at night as it makes him tired. Dr Ravi notified. Pt c/o 3/10 back pain and was given PRN Tylenol 650 mg at 0758 with good effect. Pt stated that he really wished to be discharged as he has food rotting in his apartment. Pt stated, "I'm going crazy in here. I don't belong here." Pt denied SI/HI/AH/VH. Per SW's note, plan is for patient to discharge home tomorrow. [facility] to pick him up at 1000 and transport him back to his apartment in [place]. Plan: Pt will be discharged home tomorrow at 1000.
[2023-01-09 20:00] VITALS: BP 110/64
[2023-01-09] MEDS: tamsulosin 0.4mg capsule PO SCH (20:19)
[2023-01-09] MEDS ORDERED: warfarin 7.5mg tablet PO ONE (21:00)
--- NOTE | 2023-01-09 23:21 | NUR ---
Nursing Progress Note: Kanu Problem: Pt admitted today (12/27/2022) to [facility] on a 5150 for gravely disabled at 1133. Neighbors called about Pt walking around with a knife. Pt stated someone had a gun and wanted to kill him and was "Here somewhere". Pt responding to internal stimuli, disoriented and unable to meet basic needs. Pt has history of CVA, Depression, Schizophrenia, and Bipolar. Interventions: 1:1 assessment, therapeutic conversation, active listening, ensured contract for safety, medication administration/education/monitoring, fall prevention, pain management, and maintained Q15 min safety checks. Response: Pt lying in bed resting at change of shift. Pt cooperative and stated he was happy to be leaving tomorrow. Denied MH symptoms, declined snacks, took HS medications and went back to sleep. Plan: Pt will be discharged home tomorrow at 1000.
[2023-01-10] MEDS ORDERED: WARF-65 PO (08:43)
[2023-01-10] MEDS ORDERED: OLAN7.5T18 PO (08:43)
[2023-01-10] MEDS ORDERED: tamsulosin capsule PO (08:43)
[2023-01-10] MEDS ORDERED: FLO0.4C PO (08:45)
[2023-01-10] MEDS ORDERED: WARF-55 PO (08:45)
--- NOTE | 2023-01-10 13:03 | NUR ---
Discharge Note: Pt. signed all paperwork, and signed copies placed in chart. Pt. recieved all personal belongings and bag from the safe. He was escorted down to lobby in a WC and was picked up [facility] office at 1250.
[2023-01-10] MEDS ORDERED: warfarin 7.5mg tablet PO ONE (21:00)
== END 2023-01-10 12:30 | disposition home or self-care (01) | DRG 885 ==
LOC: ER 03:17 → ED HOLD 12-26 10:30 → ADULT MH 12-26 11:30
PROVIDERS: ADMIT Psychiatry & Neurology Psychiatry; ATTEND Psychiatry & Neurology Psychiatry
DX: F29 Unspecified psychosis not due to a substance or known physiological condition (principal); N18.9 Chronic kidney disease, unspecified; I69.354 Hemiplegia and hemiparesis following cerebral infarction affecting left non-dominant side; S42.402A Unspecified fracture of lower end of left humerus, initial encounter for closed fracture; Z20.822 Contact with and (suspected) exposure to COVID-19; Z60.2 Problems related to living alone; F43.10 Post-traumatic stress disorder, unspecified; F39 Unspecified mood [affective] disorder; N40.0 Benign prostatic hyperplasia without lower urinary tract symptoms; E78.5 Hyperlipidemia, unspecified; G89.29 Other chronic pain; M54.9 Dorsalgia, unspecified; M25.522 Pain in left elbow; Z59.00 Homelessness unspecified; Z79.01 Long term (current) use of anticoagulants; Z95.2 Presence of prosthetic heart valve; Z88.8 Allergy status to other drugs, medicaments and biological substances; Z79.899 Other long term (current) drug therapy
CPT/HCPCS: 36415; 73080; 73200; 80053; 80061; 80305; 80320; 81001; 83036; 84443; 85025; 85610; 87081; 87811; 97116; 97161; 97530; 99285; C2617; J2060; J3486